=== PATIENT | male | born 1945 | race Caucasian/White ===

== ENCOUNTER 2022-03-15 03:57 | Inpatient (IN) | payer MEDICARE, BC ==
[2022-03-15] VITALS (13 sets, daily range): BP systolic 87–116; BP diastolic 52–65
[~2022-03-15] VITALS: Ht 165.1 cm; Wt 82.5 kg
[2022-03-15] MEDS ORDERED: HEPARIN SODIUM (PORCINE) 5000 UNITS/ML 1ML VIAL IV ONE (04:15)
[2022-03-15] MEDS ORDERED: ATROPINE SULF 1 MG/10ml SYR ONE (04:27)
[2022-03-15] MEDS ORDERED: ANGIOMAX 250 MG VIAL IV ONE (04:27)
[2022-03-15] MEDS ORDERED: fentaNYL CITRATE 100 MCG/2 ML VL ONE (04:28)
[2022-03-15] MEDS ORDERED: MIDAZOLAM HCL 2MG/2ML 2ml VIAL (1mg/ml) ONE (04:28)
[2022-03-15] MEDS ORDERED: EPINEPHrine HCL 1 MG/10 ML SYRG ONE (04:28)
[2022-03-15] MEDS ORDERED: SODIUM CHL 0.9% 50 ML ONE (04:28)
[2022-03-15 04:29] LABS: Basophils # (auto) 0 10 ^3/uL (0-0.2); Basophils % (auto) 0.3 % (0.0-2.0); Eosinophils # (auto) 0.1 10 ^3/uL (0-0.8); Eosinophils % (auto) 0.9 % (0.0-7.0); Hematocrit 41.6 % (41.0-53.0); Hemoglobin 14.3 g/dL (13.5-17.5); Lymphocytes # (auto) 1.8 10 ^3/uL (0.4-5.4); Lymphocytes % (auto) 12.1 % (10.0-50.0); Mean Corpuscular Hemoglobin 30.7 pg (28.0-32.0); Mean Corpuscular Hgb Conc. 34.3 g/dL (32.0-36.0); Mean Corpuscular Volume 89.4 fL (80.0-100.0); Monocytes # (auto) 0.5 10 ^3/uL (0-1.3); Monocytes % (auto) 3.1 % (0.0-12.0); Neutrophils # (auto) 12.8 10 ^3/uL (1.6-8.6); Neutrophils % (auto) 83.6 % (37.0-80.0); Red Blood Cells 4.65 10^6/uL (4.5-5.90); Red Cell Distribution Width 13.2 % (11.8-14.3); White Blood Cell 15.3 10^3/uL (4.4-10.8)
[2022-03-15] MEDS ORDERED: LIDOCAINE 2%HCL (LOCAL ANESTH.) INJ 10ml MDV ONE (04:29)
[2022-03-15] MEDS ORDERED: niCARdipine 25 MG/10 ML VIAL IV ONE (04:34)
[2022-03-15] MEDS ORDERED: IODIXANOL 320MG/ML 100ML BTL IV ONE ×2 (04:35→05:31)
[2022-03-15] MEDS ORDERED: CLOPIDOGREL BISULFATE 75 MG TAB PO ONE (04:45)
[2022-03-15 04:48] LABS: Calcium 9.1 mg/dL (8.5-10.1); Potassium 3.3 mmol/L (3.5-5.1)
[2022-03-15 04:50] LABS: Albumin 3.9 g/dL (3.4-5.0); BUN/Creatinine Ratio 24.1
[2022-03-15 04:53] LABS: Bilirubin, Total 0.5 mg/dL (0.2-1.0); Total Protein 6.9 g/dL (6.4-8.2)
[2022-03-15] MEDS ORDERED: EPTIFIBATIDE INJ (2MG/ML) 10ML VIAL IV ONE (05:06)
[2022-03-15] MEDS ORDERED: DOCUSATE SOD 100 MG CAP PO PRN (05:15)
[2022-03-15] MEDS ORDERED: ACETAMINOPHEN 325 MG TAB PO PRN (05:15)
[2022-03-15] MEDS ORDERED: hydrALAZINE HCL 20 MG/ML VL IV PRN (05:15)
[2022-03-15] MEDS ORDERED: NITROGLYCERIN 0.4 MG SL TAB SL PRN (05:15)
[2022-03-15] MEDS ORDERED: MORPHINE SULFATE INJ 2 MG/ml SYRG IV PRN ×2 (05:15)
[2022-03-15] MEDS ORDERED: ONDANSETRON HCL 4 MG/2 ML VIAL IV PRN (05:15)
[2022-03-15] MEDS ORDERED: DEXTROSE (50%) 50ML SYRG IV PRN (05:15)
[2022-03-15] MEDS ORDERED: HYDROcodone-ACET 5/325MG TAB PO PRN (05:15)
[2022-03-15] MEDS ORDERED: SOD CHL 0.45% 1,000 ML IV SCH (06:00)
[2022-03-15] MEDS ORDERED: cefTRIAXone 1GM/50ML D5W 50 ML IV ONE (06:15)
[2022-03-15] MEDS: ACCU-CHEK COMFORT CURVE STRIP VI SCH ×2 (07:00→11:30)
[2022-03-15] MEDS: POTASSIUM CHL 20MEQ/100ML 100 ML IV SCH ×2 (09:58→14:28)
[2022-03-15] MEDS ORDERED: METOPROLOL TARTRATE 25 MG TAB PO SCH (10:00)
[2022-03-15] MEDS ORDERED: HEPARIN SODIUM (PORCINE) 5000 UNITS/ML 1ML VIAL SC SCH (10:00)
[2022-03-15] MEDS: InsuLIN REG 1unit/0.01ml Soln (100units/ml) SC SCH ×2 (10:00→11:30)
[2022-03-15] MEDS ORDERED: FAMOTIDINE (10MG/ML) 2ML VL IV SCH (10:00)
[2022-03-15] MEDS: SODIUM CHLOR 0.9% PF (SALINE LOCK) 10ML VIAL/SYR IV SCH ×3 (10:00→22:00)
[2022-03-15] MEDS: cefTRIAXone 1GM/50ML D5W 50 ML IV SCH (10:22)
[2022-03-15] MEDS: CLOPIDOGREL BISULFATE 75 MG TAB PO SCH (10:24)
[2022-03-15] MEDS: ASPirin 81 mg TAB PO SCH (10:24)
[2022-03-15] MEDS: NICOTINE 14 MG/24HR TOPICAL PATCH TD SCH (11:31)
[2022-03-15] MEDS ORDERED: POTASSIUM CHL 20MEQ/100ML 100 ML IV ONE (14:26)
[2022-03-15 15:54] LABS: Magnesium 2.2 mg/dL (1.6-2.6)
[2022-03-15] MEDS: METOPROLOL TARTRATE 25 MG TAB PO SCH (22:00)
[2022-03-15] MEDS: ATORVASTATIN 20 MG TAB PO SCH (22:00)
[2022-03-15] MEDS ORDERED: InsuLIN REG 1unit/0.01ml Soln (100units/ml) SC SCH (22:00)
[2022-03-15 23:55] LABS: Urine Bacteria NONE SEEN /hpf (None Seen); Urine Blood 2+ /uL (Negative); Urine Hyaline Cast FEW /lpf (0 - 2); Urine Mucus FEW (None Seen); Urine Specific Gravity 1.043 (1.001-1.035); Urine WBC 4 /hpf (0 - 3)
[2022-03-16] MEDS ORDERED: LORazepam 2MG/ML-1ML VIAL ONE (02:28)
[2022-03-16] MEDS ORDERED: LORazepam 2MG/ML-1ML VIAL IV PRN (02:30)
[2022-03-16] MEDS ORDERED: HALOPERIDOL LACTATE 5 MG/ML INJ VIAL IM ONE (03:30)
[2022-03-16] MEDS: SODIUM CHLOR 0.9% PF (SALINE LOCK) 10ML VIAL/SYR IV SCH ×3 (06:02→22:15)
[2022-03-16 09:00] VITALS: BP 127/93
[2022-03-16] MEDS: NICOTINE 14 MG/24HR TOPICAL PATCH TD SCH (10:00)
[2022-03-16] MEDS: METOPROLOL TARTRATE 25 MG TAB PO SCH ×2 (10:00→22:00)
[2022-03-16] MEDS: ASPirin 81 mg TAB PO SCH (10:00)
[2022-03-16] MEDS: CLOPIDOGREL BISULFATE 75 MG TAB PO SCH (10:00)
[2022-03-16] MEDS: cefTRIAXone 1GM/50ML D5W 50 ML IV SCH (10:14)
[2022-03-16 13:07] LABS: Basophils # (auto) 0 10 ^3/uL (0-0.2); Basophils % (auto) 0.2 % (0.0-2.0); Eosinophils # (auto) 0 10 ^3/uL (0-0.8); Hematocrit 41.1 % (41.0-53.0); Lymphocytes # (auto) 1.2 10 ^3/uL (0.4-5.4); Lymphocytes % (auto) 6.9 % (10.0-50.0); Mean Corpuscular Hemoglobin 30.8 pg (28.0-32.0); Mean Corpuscular Hgb Conc. 34.2 g/dL (32.0-36.0); Mean Corpuscular Volume 90.1 fL (80.0-100.0); Monocytes # (auto) 1.1 10 ^3/uL (0-1.3); Monocytes % (auto) 6.5 % (0.0-12.0); Neutrophils # (auto) 14.3 10 ^3/uL (1.6-8.6); Neutrophils % (auto) 86.4 % (37.0-80.0); Nucleated Red Blood Cells % 0.1 %; Red Blood Cells 4.56 10^6/uL (4.5-5.90); Red Cell Distribution Width 13.3 % (11.8-14.3); White Blood Cell 16.6 10^3/uL (4.4-10.8)
[2022-03-16 13:22] LABS: Albumin 3.3 g/dL (3.4-5.0); BUN/Creatinine Ratio 23.1; Potassium 4.2 mmol/L (3.5-5.1)
[2022-03-16 13:26] LABS: Bilirubin, Total 1.1 mg/dL (0.2-1.0); Total Protein 6.3 g/dL (6.4-8.2)
[2022-03-16 22:00] VITALS: BP 93/43
[2022-03-16] MEDS: ATORVASTATIN 20 MG TAB PO SCH (22:00)
[2022-03-17] VITALS (34 sets, daily range): BP systolic 76–157; BP diastolic 32–73
[2022-03-17] MEDS ORDERED: DOXYCYCLINE 100MG/250ML 250 ML IV SCH (01:45)
[2022-03-17 02:30] LABS: Hemoglobin 15.8 g/dL (13.5-17.5); Nucleated Red Blood Cells % 0.1 %
[2022-03-17 02:45] LABS: Calcium 9.1 mg/dL (8.5-10.1); Potassium 4.8 mmol/L (3.5-5.1)
[2022-03-17 03:07] LABS: Basophils # (auto) 0 10 ^3/uL (0-0.2); Basophils % (auto) 0.1 % (0.0-2.0); Eosinophils # (auto) 0 10 ^3/uL (0-0.8); Hematocrit 46.9 % (41.0-53.0); Lymphocytes # (auto) 1.7 10 ^3/uL (0.4-5.4); Lymphocytes % (auto) 7.5 % (10.0-50.0); Mean Corpuscular Hemoglobin 30.4 pg (28.0-32.0); Mean Corpuscular Hgb Conc. 33.7 g/dL (32.0-36.0); Mean Corpuscular Volume 90.2 fL (80.0-100.0); Monocytes # (auto) 1.4 10 ^3/uL (0-1.3); Monocytes % (auto) 6.2 % (0.0-12.0); Neutrophils # (auto) 19.4 10 ^3/uL (1.6-8.6); Neutrophils % (auto) 86.2 % (37.0-80.0); Red Cell Distribution Width 13.3 % (11.8-14.3); White Blood Cell 22.5 10^3/uL (4.4-10.8)
[2022-03-17 03:30] LABS: Lactic Acid w/Reflex 2.4 mmol/L (0.4-2.0)
[2022-03-17] MEDS ORDERED: ENOXAPARIN SOD 100 MG/1 ML SYRINGE SC ONE (03:45)
[2022-03-17] MEDS ORDERED: PIPERACILLIN-TAZOB 3.375GM 100 ML IV SCH (06:00)
[2022-03-17] MEDS: IPRATROPIUM BROM 0.5 MG/2.5ML INH SOL NEB SCH ×5 (06:15→22:15)
[2022-03-17] MEDS: ALBUTEROL SULF 2.5 MG/0.5ML(0.5%) NEB SOLN NEB SCH ×5 (06:15→22:15)
[2022-03-17] MEDS: SODIUM CHLOR 0.9% PF (SALINE LOCK) 10ML VIAL/SYR IV SCH ×3 (06:39→22:00)
[2022-03-17] MEDS: METOPROLOL TARTRATE 25 MG TAB PO SCH (10:00)
[2022-03-17] MEDS: NICOTINE 14 MG/24HR TOPICAL PATCH TD SCH (10:35)
[2022-03-17] MEDS: ASPirin 81 mg TAB PO SCH (11:52)
[2022-03-17] MEDS: CLOPIDOGREL BISULFATE 75 MG TAB PO SCH (11:52)
[2022-03-17] MEDS: SODIUM CHLORIDE 0.9% 1,000 ML IV SCH (14:36)
[2022-03-17] MEDS ORDERED: LORazepam 0.5 MG TAB PO PRN (15:45)
[2022-03-17] MEDS: PIPERACILLIN-TAZOB 3.375GM 100 ML IV SCH (17:59)
[2022-03-17] MEDS: ATORVASTATIN 20 MG TAB PO SCH (22:06)
[2022-03-18] VITALS (65 sets, daily range): BP systolic 90–165; BP diastolic 13–82
[2022-03-18] MEDS: ALBUTEROL SULF 2.5 MG/0.5ML(0.5%) NEB SOLN NEB SCH ×5 (02:01→18:00)
[2022-03-18] MEDS: IPRATROPIUM BROM 0.5 MG/2.5ML INH SOL NEB SCH ×5 (02:01→18:00)
[2022-03-18] MEDS ORDERED: LORazepam 2MG/ML-1ML VIAL ONE (02:42)
[2022-03-18] MEDS ORDERED: LORazepam 2MG/ML-1ML VIAL IV PRN (02:45)
[2022-03-18] MEDS: PIPERACILLIN-TAZOB 3.375GM 100 ML IV SCH ×2 (03:13→11:41)
[2022-03-18] MEDS: SODIUM CHLORIDE 0.9% 1,000 ML IV SCH (04:25)
[2022-03-18 05:03] LABS: Hematocrit 42.9 % (41.0-53.0); Hemoglobin 14.3 g/dL (13.5-17.5); Mean Corpuscular Hemoglobin 30.9 pg (28.0-32.0); Mean Corpuscular Hgb Conc. 33.4 g/dL (32.0-36.0); Mean Corpuscular Volume 92.8 fL (80.0-100.0); Red Blood Cells 4.62 10^6/uL (4.5-5.90); Red Cell Distribution Width 13.2 % (11.8-14.3); White Blood Cell 28.1 10^3/uL (4.4-10.8)
[2022-03-18 05:09] LABS: Basophils % (manual) 0 (0.0-2.0); Blast Cells 0; Eosinophils % (manual) 0 (0-7); Metamyelocytes % 0; Myelocytes % 0; Promyelocytes % 0; Reactive Lymphocytes 0
[2022-03-18 05:18] LABS: Alanine Aminotransferase 108 U/L (16-61); Albumin 2.7 g/dL (3.4-5.0); Anion Gap 14 (5-15); Aspartate Aminotransferase 156 U/L (15-37); BUN/Creatinine Ratio 35.2; Blood Urea Nitrogen 62 mg/dL (7-18); Calcium 8.6 mg/dL (8.5-10.1); Carbon Dioxide 16 mmol/L (21-32); Chloride 111 mmol/L (98-107); GFR African American 49 mL/min; GFR Non-African American 40 mL/min; Glucose 219 mg/dL (74-106); Sodium 141 mmol/L (136-145)
[2022-03-18 05:21] LABS: Alkaline Phosphatase 87 U/L (45-117); Bilirubin, Total 1.1 mg/dL (0.2-1.0); Total Protein 6.1 g/dL (6.4-8.2)
[2022-03-18] MEDS ORDERED: HALOPERIDOL LACTATE 5 MG/ML INJ VIAL IM ONE (05:30)
[2022-03-18] MEDS: SODIUM CHLOR 0.9% PF (SALINE LOCK) 10ML VIAL/SYR IV SCH ×3 (06:00→23:01)
[2022-03-18] MEDS ORDERED: ETOMIDATE (2MG/ML) 20ML VIAL IV ONE ×2 (06:19→06:45)
[2022-03-18] MEDS ORDERED: SUCCINYLCHOLINE CHLORIDE 20 MG/ML 10ML VIAL IV ONE ×3 (06:19→06:45)
[2022-03-18] MEDS ORDERED: NOREPINEPHRINE 8 MG/250ML KIT 250 ML IV ONE (06:23)
[2022-03-18] MEDS ORDERED: ADENOSINE 6 MG/2 ML INJ IV ONE (06:28)
[2022-03-18] MEDS ORDERED: dilTIAZem 25 MG/5 ML VIAL IV ONE (06:29)
[2022-03-18] MEDS ORDERED: AMIODARONE HCL (50 MG/ ML) 3 ML VIAL IV ONE (06:31)
[2022-03-18] MEDS ORDERED: AMIODARONE 450mg/250ml AE 250 ML IV ONE (06:31)
[2022-03-18] MEDS ORDERED: MIDAZOLAM DRIP 50 mg/50mL 50 ML IV ONE (06:33)
[2022-03-18] MEDS: MIDAZOLAM DRIP 50 mg/50mL 50 ML IV SCH ×5 (06:40→21:03)
[2022-03-18] MEDS ORDERED: AMIODARONE HCL 150 MG in D5W 5% 100 ML IV ONE (06:45)
[2022-03-18] MEDS ORDERED: AMIODARONE 450mg/250ml AE 250 ML IV SCH (07:00)
[2022-03-18] MEDS ORDERED: PROPOFOL 100 ML IV ONE (07:31)
[2022-03-18 08:09] LABS: Band Neutrophils % (manual) 2; Lymphocytes % (manual) 4 (10.0-50.0); Monocytes % (manual) 3 (0-12)
[2022-03-18] MEDS ORDERED: methylPREDNISolone SOD SUCC 40 MG/ML VL IV SCH (10:00)
[2022-03-18] MEDS: NICOTINE 14 MG/24HR TOPICAL PATCH TD SCH (10:00)
[2022-03-18] MEDS ORDERED: SODIUM BICARBONATE 50ML VIAL 100 ML in D5W 5% 1,000 ML IV SCH (10:45)
[2022-03-18] MEDS ORDERED: PANTOPRAZOLE 40 MG/10 ML VIAL INJ IV ONE (10:45)
[2022-03-18] MEDS: CLOPIDOGREL BISULFATE 75 MG TAB PO SCH (11:30)
[2022-03-18] MEDS: ASPirin 81 mg TAB PO SCH (11:31)
[2022-03-18] MEDS: PROPOFOL 100 ML IV SCH ×3 (11:34→21:08)
[2022-03-18] MEDS: fentaNYL Drip 2500mCg/250mlNS 250 ML IV SCH (11:35)
[2022-03-18] MEDS ORDERED: ENOXAPARIN SOD 30 MG/0.3 ML SYRINGE SC ONE (11:45)
[2022-03-18] MEDS ORDERED: MEROPENEM 1GM IVPB 100 ML IV ONE (11:45)
[2022-03-18] MEDS ORDERED: FUROSEMIDE 40 MG/4 ML VIAL IV ONE ×2 (11:45→12:00)
[2022-03-18] MEDS: SODIUM BICARBONATE 50ML VIAL 100 ML in D5W 5% 1,000 ML IV SCH (12:00)
[2022-03-18] MEDS: AMIODARONE 450mg/250ml AE 250 ML IV SCH (13:15)
[2022-03-18 18:51] LABS: BUN/Creatinine Ratio 39.6; Calcium 8.3 mg/dL (8.5-10.1); Magnesium 2.6 mg/dL (1.6-2.6); Phosphorus 5.9 mg/dL (2.5-4.90); Potassium 4.7 mmol/L (3.5-5.1)
[2022-03-18 20:04] LABS: INR 1.1 (0.9-1.15); Partial Thromboplastin Time 31.6 sec (23.6-33.0)
[2022-03-18] MEDS: NOREPINEPHRINE 8 MG/250ML KIT 250 ML IV SCH (21:04)
[2022-03-18] MEDS: MEROPENEM 1GM IVPB 100 ML IV SCH (21:07)
[2022-03-18] MEDS: ATORVASTATIN 20 MG TAB PO SCH (23:01)
[2022-03-19] VITALS (101 sets, daily range): BP systolic 89–150; BP diastolic 20–62
[2022-03-19] MEDS: ALBUTEROL SULF 2.5 MG/0.5ML(0.5%) NEB SOLN NEB SCH ×6 (00:12→23:00)
[2022-03-19] MEDS: IPRATROPIUM BROM 0.5 MG/2.5ML INH SOL NEB SCH ×6 (00:12→23:01)
[2022-03-19 01:44] LABS: BUN/Creatinine Ratio 36.8; Calcium 8.2 mg/dL (8.5-10.1); Magnesium 2.5 mg/dL (1.6-2.6); Phosphorus 6.6 mg/dL (2.5-4.90); Potassium 4.8 mmol/L (3.5-5.1)
[2022-03-19] MEDS: SODIUM BICARBONATE 50ML VIAL 100 ML in D5W 5% 1,000 ML IV SCH (02:33)
[2022-03-19] MEDS: AMIODARONE 450mg/250ml AE 250 ML IV SCH ×2 (02:34→19:26)
[2022-03-19] MEDS: MIDAZOLAM DRIP 50 mg/50mL 50 ML IV SCH (02:34)
[2022-03-19 04:03] LABS: Hematocrit 37.3 % (41.0-53.0); Hemoglobin 12.3 g/dL (13.5-17.5); Mean Corpuscular Hemoglobin 30.2 pg (28.0-32.0); Mean Corpuscular Volume 91.5 fL (80.0-100.0); Red Blood Cells 4.08 10^6/uL (4.5-5.90); Red Cell Distribution Width 13.5 % (11.8-14.3); White Blood Cell 26.9 10^3/uL (4.4-10.8)
[2022-03-19 04:10] LABS: Basophils % (manual) 0 (0.0-2.0); Blast Cells 0; Eosinophils % (manual) 0 (0-7); Metamyelocytes % 0; Myelocytes % 0; Promyelocytes % 0; Reactive Lymphocytes 0
[2022-03-19 04:18] LABS: Potassium 4.6 mmol/L (3.5-5.1)
[2022-03-19 04:22] LABS: Albumin 2.3 g/dL (3.4-5.0); BUN/Creatinine Ratio 37.4
[2022-03-19 04:33] LABS: Bilirubin, Total 0.4 mg/dL (0.2-1.0); Total Protein 5.5 g/dL (6.4-8.2)
[2022-03-19] MEDS: PROPOFOL 100 ML IV SCH (05:00)
[2022-03-19 06:48] LABS: Band Neutrophils % (manual) 3; Lymphocytes % (manual) 3 (10.0-50.0); Monocytes % (manual) 5 (0-12)
[2022-03-19] MEDS: SODIUM CHLOR 0.9% PF (SALINE LOCK) 10ML VIAL/SYR IV SCH ×4 (07:15→22:11)
[2022-03-19] MEDS ORDERED: FUROSEMIDE 40 MG/4 ML VIAL IV ONE (09:00)
[2022-03-19] MEDS: NICOTINE 14 MG/24HR TOPICAL PATCH TD SCH (09:27)
[2022-03-19] MEDS: MEROPENEM 1GM IVPB 100 ML IV SCH ×2 (09:47→22:10)
[2022-03-19] MEDS: ASPirin 81 mg TAB PO SCH (09:48)
[2022-03-19] MEDS: PANTOPRAZOLE 40 MG/10 ML VIAL INJ IV SCH (09:48)
[2022-03-19] MEDS: CLOPIDOGREL BISULFATE 75 MG TAB PO SCH (09:48)
[2022-03-19 10:34] LABS: BUN/Creatinine Ratio 38.3; Calcium 8.1 mg/dL (8.5-10.1); Potassium 5.2 mmol/L (3.5-5.1)
[2022-03-19] MEDS ORDERED: LIDOCAINE 1% (LOCAL ANESTH.) PF 5ml SDV ID ONE (12:00)
[2022-03-19] MEDS: FUROSEMIDE INJECTION 100 MG in D5W 5% 100 ML IV SCH (12:08)
[2022-03-19] MEDS ORDERED: Nepro With Carb Steady 1 Liter Bottle GT SCH (14:30)
[2022-03-19 15:58] LABS: Calcium 8.1 mg/dL (8.5-10.1); Potassium 4.9 mmol/L (3.5-5.1)
[2022-03-19 16:00] LABS: BUN/Creatinine Ratio 35.5
[2022-03-19] MEDS: NOREPINEPHRINE 8 MG/250ML KIT 250 ML IV SCH (16:41)
[2022-03-19] MEDS: fentaNYL Drip 2500mCg/250mlNS 250 ML IV SCH (16:42)
[2022-03-19] MEDS: ATORVASTATIN 20 MG TAB PO SCH (22:11)
[2022-03-20] VITALS (104 sets, daily range): BP systolic 87–125; BP diastolic 45–69
[2022-03-20] MEDS: FUROSEMIDE INJECTION 100 MG in D5W 5% 100 ML IV SCH ×2
[2022-03-20] MEDS: NOREPINEPHRINE 8 MG/250ML KIT 250 ML IV SCH ×2 (00:01→08:25)
[2022-03-20] MEDS: IPRATROPIUM BROM 0.5 MG/2.5ML INH SOL NEB SCH ×6 (02:43→22:21)
[2022-03-20] MEDS: ALBUTEROL SULF 2.5 MG/0.5ML(0.5%) NEB SOLN NEB SCH ×6 (02:43→22:21)
[2022-03-20] MEDS: SODIUM CHLOR 0.9% PF (SALINE LOCK) 10ML VIAL/SYR IV SCH ×5 (03:03→22:00)
[2022-03-20] MEDS: MIDAZOLAM DRIP 50 mg/50mL 50 ML IV SCH (03:04)
[2022-03-20 03:54] LABS: Basophils # (auto) 0.1 10 ^3/uL (0-0.2); Basophils % (auto) 0.4 % (0.0-2.0); Eosinophils # (auto) 0 10 ^3/uL (0-0.8); Eosinophils % (auto) 0.1 % (0.0-7.0); Hematocrit 36.1 % (41.0-53.0); Hemoglobin 12.2 g/dL (13.5-17.5); Lymphocytes # (auto) 1.4 10 ^3/uL (0.4-5.4); Lymphocytes % (auto) 6.1 % (10.0-50.0); Mean Corpuscular Hemoglobin 30.6 pg (28.0-32.0); Mean Corpuscular Hgb Conc. 33.9 g/dL (32.0-36.0); Mean Corpuscular Volume 90.3 fL (80.0-100.0); Neutrophils # (auto) 19.2 10 ^3/uL (1.6-8.6); Neutrophils % (auto) 84.4 % (37.0-80.0); Nucleated Red Blood Cells % 0.1 %; Red Cell Distribution Width 13.5 % (11.8-14.3); White Blood Cell 22.7 10^3/uL (4.4-10.8)
[2022-03-20 04:10] LABS: Albumin 2.3 g/dL (3.4-5.0); Calcium 8.2 mg/dL (8.5-10.1)
[2022-03-20 04:13] LABS: Bilirubin, Total 0.4 mg/dL (0.2-1.0); Total Protein 5.8 g/dL (6.4-8.2)
[2022-03-20 04:15] LABS: BUN/Creatinine Ratio 42.3
[2022-03-20] MEDS: AMIODARONE 450mg/250ml AE 250 ML IV SCH (08:24)
[2022-03-20] MEDS: PROPOFOL 100 ML IV SCH (08:24)
[2022-03-20] MEDS: ASPirin 81 mg TAB PO SCH (09:54)
[2022-03-20] MEDS: MEROPENEM 1GM IVPB 100 ML IV SCH ×2 (09:54→22:00)
[2022-03-20] MEDS: PANTOPRAZOLE 40 MG/10 ML VIAL INJ IV SCH (09:55)
[2022-03-20] MEDS: CLOPIDOGREL BISULFATE 75 MG TAB PO SCH (09:55)
[2022-03-20] MEDS: fentaNYL Drip 2500mCg/250mlNS 250 ML IV SCH (13:00)
[2022-03-20] MEDS: FREE WATER GT SCH (17:32)
[2022-03-20] MEDS: LINEZOLID 600MG/300ML 300 ML IV SCH (20:38)
[2022-03-20] MEDS: ATORVASTATIN 20 MG TAB PO SCH (22:00)
[2022-03-21] VITALS (107 sets, daily range): BP systolic 85–116; BP diastolic 44–66
[2022-03-21] MEDS: AMIODARONE 450mg/250ml AE 250 ML IV SCH ×3 (01:00→17:36)
[2022-03-21] MEDS: FUROSEMIDE INJECTION 100 MG in D5W 5% 100 ML IV SCH ×2 (01:30→21:30)
[2022-03-21] MEDS: ALBUTEROL SULF 2.5 MG/0.5ML(0.5%) NEB SOLN NEB SCH ×6 (02:12→22:13)
[2022-03-21] MEDS: IPRATROPIUM BROM 0.5 MG/2.5ML INH SOL NEB SCH ×6 (02:12→22:13)
[2022-03-21] MEDS: PROPOFOL 100 ML IV SCH ×3 (02:16→17:36)
[2022-03-21] MEDS: NOREPINEPHRINE 8 MG/250ML KIT 250 ML IV SCH ×3 (02:17→19:06)
[2022-03-21 04:22] LABS: Basophils # (auto) 0 10 ^3/uL (0-0.2); Basophils % (auto) 0.1 % (0.0-2.0); Eosinophils # (auto) 0.1 10 ^3/uL (0-0.8); Hematocrit 34.8 % (41.0-53.0); Hemoglobin 11.6 g/dL (13.5-17.5); Lymphocytes # (auto) 1.1 10 ^3/uL (0.4-5.4); Mean Corpuscular Hemoglobin 30.7 pg (28.0-32.0); Mean Corpuscular Hgb Conc. 33.3 g/dL (32.0-36.0); Mean Corpuscular Volume 92.1 fL (80.0-100.0); Monocytes # (auto) 1.5 10 ^3/uL (0-1.3); Monocytes % (auto) 11.5 % (0.0-12.0); Neutrophils # (auto) 9.9 10 ^3/uL (1.6-8.6); Neutrophils % (auto) 78.4 % (37.0-80.0); Nucleated Red Blood Cells % 0.4 %; Red Blood Cells 3.78 10^6/uL (4.5-5.90); Red Cell Distribution Width 13.1 % (11.8-14.3); White Blood Cell 12.7 10^3/uL (4.4-10.8)
[2022-03-21 04:40] LABS: BUN/Creatinine Ratio 67.5; Calcium 8.1 mg/dL (8.5-10.1); Potassium 4.1 mmol/L (3.5-5.1)
[2022-03-21] MEDS: FREE WATER GT SCH ×4 (06:00→18:16)
[2022-03-21] MEDS: SODIUM CHLOR 0.9% PF (SALINE LOCK) 10ML VIAL/SYR IV SCH ×5 (06:00→21:52)
[2022-03-21] MEDS: MIDAZOLAM DRIP 50 mg/50mL 50 ML IV SCH (06:45)
[2022-03-21] MEDS: ASPirin 81 mg TAB PO SCH (09:12)
[2022-03-21] MEDS: PANTOPRAZOLE 40 MG/10 ML VIAL INJ IV SCH (09:12)
[2022-03-21] MEDS: CLOPIDOGREL BISULFATE 75 MG TAB PO SCH (09:12)
[2022-03-21] MEDS: LINEZOLID 600MG/300ML 300 ML IV SCH ×2 (09:13→20:33)
[2022-03-21] MEDS ORDERED: DEXTROSE (50%) 50ML SYRG IV PRN (11:15)
[2022-03-21] MEDS: fentaNYL Drip 2500mCg/250mlNS 250 ML IV SCH (11:18)
[2022-03-21] MEDS: MEROPENEM 1GM IVPB 100 ML IV SCH ×2 (11:18→21:52)
[2022-03-21] MEDS: ACCU-CHEK COMFORT CURVE STRIP VI SCH ×2 (11:39→18:16)
[2022-03-21] MEDS: InsuLIN REG 1unit/0.01ml Soln (100units/ml) SC SCH ×2 (11:45→18:00)
[2022-03-21 14:58] LABS: Basophils # (auto) 0.1 10 ^3/uL (0-0.2); Basophils % (auto) 0.8 % (0.0-2.0); Eosinophils # (auto) 0.2 10 ^3/uL (0-0.8); Eosinophils % (auto) 1.3 % (0.0-7.0); Hematocrit 33.7 % (41.0-53.0); Hemoglobin 11.5 g/dL (13.5-17.5); Lymphocytes # (auto) 0.9 10 ^3/uL (0.4-5.4); Lymphocytes % (auto) 7.9 % (10.0-50.0); Mean Corpuscular Hemoglobin 30.9 pg (28.0-32.0); Mean Corpuscular Volume 90.9 fL (80.0-100.0); Monocytes # (auto) 1.5 10 ^3/uL (0-1.3); Monocytes % (auto) 12.4 % (0.0-12.0); Neutrophils # (auto) 9.4 10 ^3/uL (1.6-8.6); Neutrophils % (auto) 77.6 % (37.0-80.0); Nucleated Red Blood Cells % 0.1 %; Red Blood Cells 3.71 10^6/uL (4.5-5.90); Red Cell Distribution Width 13.2 % (11.8-14.3); White Blood Cell 12.1 10^3/uL (4.4-10.8)
[2022-03-21 15:02] LABS: Albumin 1.8 g/dL (3.4-5.0); BUN/Creatinine Ratio 65.6; Calcium 7.3 mg/dL (8.5-10.1); Potassium 3.8 mmol/L (3.5-5.1)
[2022-03-21 15:04] LABS: Bilirubin, Total 0.6 mg/dL (0.2-1.0); Total Protein 4.9 g/dL (6.4-8.2)
[2022-03-21] MEDS: ATORVASTATIN 20 MG TAB PO SCH (21:52)
[2022-03-22] VITALS (101 sets, daily range): BP systolic 83–121; BP diastolic 42–68
[2022-03-22] MEDS: IPRATROPIUM BROM 0.5 MG/2.5ML INH SOL NEB SCH ×6 (02:12→22:13)
[2022-03-22] MEDS: ALBUTEROL SULF 2.5 MG/0.5ML(0.5%) NEB SOLN NEB SCH ×6 (02:12→22:13)
[2022-03-22 04:33] LABS: Albumin 2.2 g/dL (3.4-5.0); BUN/Creatinine Ratio 62.6; Calcium 8.7 mg/dL (8.5-10.1); Magnesium 2.2 mg/dL (1.6-2.6); Potassium 3.4 mmol/L (3.5-5.1)
[2022-03-22 04:35] LABS: Basophils # (auto) 0 10 ^3/uL (0-0.2); Basophils % (auto) 0.1 % (0.0-2.0); Eosinophils # (auto) 0.2 10 ^3/uL (0-0.8); Eosinophils % (auto) 1.8 % (0.0-7.0); Hematocrit 36.6 % (41.0-53.0); Hemoglobin 12.5 g/dL (13.5-17.5); Lymphocytes # (auto) 1.2 10 ^3/uL (0.4-5.4); Lymphocytes % (auto) 8.9 % (10.0-50.0); Mean Corpuscular Hemoglobin 30.9 pg (28.0-32.0); Mean Corpuscular Hgb Conc. 34.2 g/dL (32.0-36.0); Mean Corpuscular Volume 90.5 fL (80.0-100.0); Monocytes # (auto) 1.8 10 ^3/uL (0-1.3); Monocytes % (auto) 13.1 % (0.0-12.0); Neutrophils # (auto) 10.2 10 ^3/uL (1.6-8.6); Neutrophils % (auto) 76.1 % (37.0-80.0); Nucleated Red Blood Cells % 0.1 %; Red Blood Cells 4.04 10^6/uL (4.5-5.90); Red Cell Distribution Width 13.4 % (11.8-14.3); White Blood Cell 13.4 10^3/uL (4.4-10.8)
[2022-03-22 04:36] LABS: Bilirubin, Total 0.6 mg/dL (0.2-1.0); Total Protein 5.7 g/dL (6.4-8.2)
[2022-03-22] MEDS: MEROPENEM 1GM IVPB 100 ML IV SCH ×3 (05:37→22:00)
[2022-03-22] MEDS: SODIUM CHLOR 0.9% PF (SALINE LOCK) 10ML VIAL/SYR IV SCH ×5 (05:37→22:00)
[2022-03-22] MEDS: ACCU-CHEK COMFORT CURVE STRIP VI SCH ×4 (05:37→18:54)
[2022-03-22] MEDS: FREE WATER GT SCH ×4 (05:37→18:54)
[2022-03-22] MEDS: InsuLIN REG 1unit/0.01ml Soln (100units/ml) SC SCH ×4 (05:37→18:00)
[2022-03-22] MEDS: MIDAZOLAM DRIP 50 mg/50mL 50 ML IV SCH (06:42)
[2022-03-22] MEDS: NOREPINEPHRINE 8 MG/250ML KIT 250 ML IV SCH ×2 (06:52→19:03)
[2022-03-22] MEDS: AMIODARONE 450mg/250ml AE 250 ML IV SCH (09:00)
[2022-03-22] MEDS ORDERED: POTASSIUM EFFERVESENT TAB 25 MEQ PO ONE (09:15)
[2022-03-22] MEDS: PANTOPRAZOLE 40 MG/10 ML VIAL INJ IV SCH (09:19)
[2022-03-22] MEDS: ENOXAPARIN SOD 40 MG/0.4 ML SYRINGE SC SCH (09:19)
[2022-03-22] MEDS: LINEZOLID 600MG/300ML 300 ML IV SCH ×2 (09:20→20:42)
[2022-03-22] MEDS: CLOPIDOGREL BISULFATE 75 MG TAB PO SCH (09:20)
[2022-03-22] MEDS: ASPirin 81 mg TAB PO SCH (09:23)
[2022-03-22] MEDS: PROPOFOL 100 ML IV SCH ×2 (10:57→18:55)
[2022-03-22] MEDS: fentaNYL Drip 2500mCg/250mlNS 250 ML IV SCH (11:41)
[2022-03-22] MEDS: ATORVASTATIN 20 MG TAB PO SCH (22:02)
[2022-03-23] VITALS (102 sets, daily range): BP systolic 84–134; BP diastolic 50–73
[2022-03-23] MEDS: AMIODARONE 450mg/250ml AE 250 ML IV SCH ×2 (04:00→17:36)
[2022-03-23] MEDS: MEROPENEM 1GM IVPB 100 ML IV SCH ×3 (06:00→21:15)
[2022-03-23] MEDS: ACCU-CHEK COMFORT CURVE STRIP VI SCH ×5 (06:00→21:13)
[2022-03-23] MEDS: FREE WATER GT SCH ×5 (06:00→21:13)
[2022-03-23] MEDS: InsuLIN REG 1unit/0.01ml Soln (100units/ml) SC SCH ×5 (06:00→21:14)
[2022-03-23] MEDS: SODIUM CHLOR 0.9% PF (SALINE LOCK) 10ML VIAL/SYR IV SCH ×5 (06:00→20:39)
[2022-03-23] MEDS: IPRATROPIUM BROM 0.5 MG/2.5ML INH SOL NEB SCH ×5 (06:25→22:04)
[2022-03-23] MEDS: ALBUTEROL SULF 2.5 MG/0.5ML(0.5%) NEB SOLN NEB SCH ×5 (06:25→22:04)
[2022-03-23] MEDS: MIDAZOLAM DRIP 50 mg/50mL 50 ML IV SCH (06:45)
[2022-03-23] MEDS: LINEZOLID 600MG/300ML 300 ML IV SCH ×2 (08:33→20:38)
[2022-03-23] MEDS: ENOXAPARIN SOD 40 MG/0.4 ML SYRINGE SC SCH (09:42)
[2022-03-23] MEDS: PANTOPRAZOLE 40 MG/10 ML VIAL INJ IV SCH (09:42)
[2022-03-23] MEDS: ASPirin 81 mg TAB PO SCH (09:42)
[2022-03-23] MEDS: CLOPIDOGREL BISULFATE 75 MG TAB PO SCH (09:43)
[2022-03-23 10:30] LABS: Basophils # (auto) 0 10 ^3/uL (0-0.2); Basophils % (auto) 0.3 % (0.0-2.0); Eosinophils # (auto) 0.3 10 ^3/uL (0-0.8); Lymphocytes # (auto) 1.2 10 ^3/uL (0.4-5.4); Monocytes # (auto) 1.1 10 ^3/uL (0-1.3)
[2022-03-23 10:33] LABS: Eosinophils % (auto) 2.7 % (0.0-7.0); Hematocrit 27.1 % (41.0-53.0); Lymphocytes % (auto) 10.1 % (10.0-50.0); Mean Corpuscular Hemoglobin 30.4 pg (28.0-32.0); Mean Corpuscular Hgb Conc. 29.4 g/dL (32.0-36.0); Mean Corpuscular Volume 103.6 fL (80.0-100.0); Neutrophils # (auto) 9.5 10 ^3/uL (1.6-8.6); Neutrophils % (auto) 77.9 % (37.0-80.0); Red Blood Cells 2.62 10^6/uL (4.5-5.90); Red Cell Distribution Width 14.6 % (11.8-14.3); White Blood Cell 12.2 10^3/uL (4.4-10.8)
[2022-03-23] MEDS: PROPOFOL 100 ML IV SCH ×2 (10:33→17:36)
[2022-03-23] MEDS: fentaNYL Drip 2500mCg/250mlNS 250 ML IV SCH ×2 (10:45→17:37)
[2022-03-23] MEDS ORDERED: ALBUMIN 25% 100 ML IV ONE (11:00)
[2022-03-23 13:11] LABS: Chloride 103 mmol/L (98-107); Potassium 3.6 mmol/L (3.5-5.1); Sodium 144 mmol/L (136-145)
[2022-03-23 13:12] LABS: Alanine Aminotransferase 70 U/L (16-61); Albumin 1.9 g/dL (3.4-5.0); Alkaline Phosphatase 113 U/L (45-117); Anion Gap 5 (5-15); Aspartate Aminotransferase 72 U/L (15-37); BUN/Creatinine Ratio 57.5; Bilirubin, Total 0.5 mg/dL (0.2-1.0); Blood Urea Nitrogen 42 mg/dL (7-18); Calcium 8.4 mg/dL (8.5-10.1); Carbon Dioxide 36 mmol/L (21-32); GFR African American 134 mL/min; GFR Non-African American 111 mL/min; Glucose 148 mg/dL (74-106); Total Protein 5.5 g/dL (6.4-8.2)
[2022-03-23] MEDS: METOCLOPRAMIDE HCL 5MG/ml INJ 2ml VIAL IV SCH ×2 (14:26→20:38)
[2022-03-23] MEDS: NOREPINEPHRINE 8 MG/250ML KIT 250 ML IV SCH (17:36)
[2022-03-23] MEDS: SENNA 8.6 MG TAB PO SCH (20:38)
[2022-03-23] MEDS: ATORVASTATIN 20 MG TAB PO SCH (20:38)
[2022-03-23] MEDS: FUROSEMIDE 40 MG/4 ML VIAL IV SCH (20:38)
[2022-03-24] VITALS (106 sets, daily range): BP systolic 87–132; BP diastolic 35–68
[2022-03-24] MEDS: IPRATROPIUM BROM 0.5 MG/2.5ML INH SOL NEB SCH ×6 (02:00→22:00)
[2022-03-24] MEDS: ALBUTEROL SULF 2.5 MG/0.5ML(0.5%) NEB SOLN NEB SCH ×6 (02:00→22:00)
[2022-03-24 04:34] LABS: Basophils # (auto) 0 10 ^3/uL (0-0.2); Basophils % (auto) 0.2 % (0.0-2.0); Eosinophils # (auto) 0.5 10 ^3/uL (0-0.8); Eosinophils % (auto) 3.3 % (0.0-7.0); Hematocrit 33.7 % (41.0-53.0); Hemoglobin 11.6 g/dL (13.5-17.5); Lymphocytes # (auto) 1.3 10 ^3/uL (0.4-5.4); Lymphocytes % (auto) 9.7 % (10.0-50.0); Mean Corpuscular Hemoglobin 31.1 pg (28.0-32.0); Mean Corpuscular Hgb Conc. 34.3 g/dL (32.0-36.0); Mean Corpuscular Volume 90.5 fL (80.0-100.0); Monocytes # (auto) 1.4 10 ^3/uL (0-1.3); Monocytes % (auto) 9.8 % (0.0-12.0); Neutrophils # (auto) 10.8 10 ^3/uL (1.6-8.6); Red Blood Cells 3.73 10^6/uL (4.5-5.90); Red Cell Distribution Width 13.3 % (11.8-14.3)
[2022-03-24 04:53] LABS: Calcium 8.4 mg/dL (8.5-10.1)
[2022-03-24 04:56] LABS: BUN/Creatinine Ratio 62.7
[2022-03-24] MEDS: FREE WATER GT SCH ×4 (05:03→22:50)
[2022-03-24] MEDS: METOCLOPRAMIDE HCL 5MG/ml INJ 2ml VIAL IV SCH ×3 (05:04→22:49)
[2022-03-24] MEDS: MIDAZOLAM DRIP 50 mg/50mL 50 ML IV SCH ×3 (05:04→22:50)
[2022-03-24] MEDS: SODIUM CHLOR 0.9% PF (SALINE LOCK) 10ML VIAL/SYR IV SCH ×4 (05:04→20:19)
[2022-03-24] MEDS: ACCU-CHEK COMFORT CURVE STRIP VI SCH ×3 (05:04→18:17)
[2022-03-24] MEDS: MEROPENEM 1GM IVPB 100 ML IV SCH ×3 (05:06→22:49)
[2022-03-24] MEDS: fentaNYL Drip 2500mCg/250mlNS 250 ML IV SCH (05:07)
[2022-03-24] MEDS: AMIODARONE 450mg/250ml AE 250 ML IV SCH ×2 (05:08→18:26)
[2022-03-24] MEDS: InsuLIN REG 1unit/0.01ml Soln (100units/ml) SC SCH ×3 (06:00→18:00)
[2022-03-24] MEDS: LINEZOLID 600MG/300ML 300 ML IV SCH (08:11)
[2022-03-24] MEDS: PROPOFOL 100 ML IV SCH ×2 (09:23→22:49)
[2022-03-24] MEDS: PANTOPRAZOLE 40 MG/10 ML VIAL INJ IV SCH (09:24)
[2022-03-24] MEDS: ASPirin 81 mg TAB PO SCH (09:24)
[2022-03-24] MEDS: FUROSEMIDE 40 MG/4 ML VIAL IV SCH ×2 (09:24→22:49)
[2022-03-24] MEDS: ENOXAPARIN SOD 40 MG/0.4 ML SYRINGE SC SCH (09:25)
[2022-03-24] MEDS: CLOPIDOGREL BISULFATE 75 MG TAB PO SCH (09:25)
[2022-03-24] MEDS: NOREPINEPHRINE 8 MG/250ML KIT 250 ML IV SCH (12:35)
[2022-03-24] MEDS: SENNA 8.6 MG TAB PO SCH (20:19)
[2022-03-24] MEDS: ATORVASTATIN 20 MG TAB PO SCH (20:19)
[2022-03-25] VITALS (107 sets, daily range): BP systolic 92–128; BP diastolic 34–72
[2022-03-25] MEDS: ACCU-CHEK COMFORT CURVE STRIP VI SCH ×4 (01:10→18:11)
[2022-03-25] MEDS: Nepro With Carb Steady 1 Liter Bottle GT SCH (01:32)
[2022-03-25] MEDS: NOREPINEPHRINE 8 MG/250ML KIT 250 ML IV SCH ×2 (01:33→12:57)
[2022-03-25] MEDS: ALBUTEROL SULF 2.5 MG/0.5ML(0.5%) NEB SOLN NEB SCH ×6 (02:00→21:52)
[2022-03-25] MEDS: IPRATROPIUM BROM 0.5 MG/2.5ML INH SOL NEB SCH ×6 (02:00→21:52)
[2022-03-25 04:09] LABS: Basophils # (auto) 0.1 10 ^3/uL (0-0.2); Basophils % (auto) 0.5 % (0.0-2.0); Eosinophils # (auto) 0.4 10 ^3/uL (0-0.8); Eosinophils % (auto) 2.8 % (0.0-7.0); Hematocrit 38.2 % (41.0-53.0); Hemoglobin 12.6 g/dL (13.5-17.5); Lymphocytes # (auto) 1.4 10 ^3/uL (0.4-5.4); Lymphocytes % (auto) 9.1 % (10.0-50.0); Mean Corpuscular Hemoglobin 29.8 pg (28.0-32.0); Mean Corpuscular Volume 90.4 fL (80.0-100.0); Monocytes # (auto) 1.2 10 ^3/uL (0-1.3); Monocytes % (auto) 8.3 % (0.0-12.0); Neutrophils # (auto) 11.8 10 ^3/uL (1.6-8.6); Neutrophils % (auto) 79.3 % (37.0-80.0); Nucleated Red Blood Cells % 0.1 %; Red Blood Cells 4.23 10^6/uL (4.5-5.90); Red Cell Distribution Width 12.9 % (11.8-14.3); White Blood Cell 14.9 10^3/uL (4.4-10.8)
[2022-03-25 04:21] LABS: BUN/Creatinine Ratio 50.6; Potassium 3.7 mmol/L (3.5-5.1)
[2022-03-25] MEDS: MEROPENEM 1GM IVPB 100 ML IV SCH ×3 (05:19→21:57)
[2022-03-25] MEDS: FREE WATER GT SCH ×3 (05:19→18:00)
[2022-03-25] MEDS: METOCLOPRAMIDE HCL 5MG/ml INJ 2ml VIAL IV SCH ×3 (05:19→21:57)
[2022-03-25] MEDS: InsuLIN REG 1unit/0.01ml Soln (100units/ml) SC SCH ×4 (05:59→18:10)
[2022-03-25] MEDS: MIDAZOLAM DRIP 50 mg/50mL 50 ML IV SCH ×2 (06:32→21:10)
[2022-03-25] MEDS: PROPOFOL 100 ML IV SCH ×2 (06:32→16:11)
[2022-03-25] MEDS: AMIODARONE 450mg/250ml AE 250 ML IV SCH (09:35)
[2022-03-25] MEDS: fentaNYL Drip 2500mCg/250mlNS 250 ML IV SCH (09:38)
[2022-03-25] MEDS: PANTOPRAZOLE 40 MG/10 ML VIAL INJ IV SCH (09:39)
[2022-03-25] MEDS: FUROSEMIDE 40 MG/4 ML VIAL IV SCH ×2 (09:40→21:57)
[2022-03-25] MEDS: ENOXAPARIN SOD 40 MG/0.4 ML SYRINGE SC SCH (10:12)
[2022-03-25] MEDS: CLOPIDOGREL BISULFATE 75 MG TAB PO SCH (10:12)
[2022-03-25] MEDS: ASPirin 81 mg TAB PO SCH (10:12)
[2022-03-25] MEDS: SODIUM CHLOR 0.9% PF (SALINE LOCK) 10ML VIAL/SYR IV SCH ×2 (10:13→21:58)
[2022-03-25] MEDS: SENNA 8.6 MG TAB PO SCH (21:57)
[2022-03-25] MEDS: ATORVASTATIN 20 MG TAB PO SCH (21:58)
[2022-03-26] VITALS (105 sets, daily range): BP systolic 89–123; BP diastolic 38–65
[2022-03-26] MEDS: ACCU-CHEK COMFORT CURVE STRIP VI SCH ×4 (00:06→17:47)
[2022-03-26] MEDS: AMIODARONE 450mg/250ml AE 250 ML IV SCH (02:15)
[2022-03-26] MEDS: PROPOFOL 100 ML IV SCH (02:16)
[2022-03-26] MEDS: fentaNYL Drip 2500mCg/250mlNS 250 ML IV SCH ×2 (02:17→21:18)
[2022-03-26] MEDS: IPRATROPIUM BROM 0.5 MG/2.5ML INH SOL NEB SCH ×6 (02:23→22:00)
[2022-03-26] MEDS: ALBUTEROL SULF 2.5 MG/0.5ML(0.5%) NEB SOLN NEB SCH ×6 (02:23→22:00)
[2022-03-26 04:17] LABS: Basophils # (auto) 0 10 ^3/uL (0-0.2); Eosinophils # (auto) 0.6 10 ^3/uL (0-0.8); Hematocrit 34.2 % (41.0-53.0); Hemoglobin 11.4 g/dL (13.5-17.5); Mean Corpuscular Hgb Conc. 33.2 g/dL (32.0-36.0); Mean Corpuscular Volume 90.2 fL (80.0-100.0); Monocytes # (auto) 0.8 10 ^3/uL (0-1.3); Monocytes % (auto) 6.4 % (0.0-12.0); Neutrophils # (auto) 9.9 10 ^3/uL (1.6-8.6); Neutrophils % (auto) 80.6 % (37.0-80.0); Red Blood Cells 3.78 10^6/uL (4.5-5.90); Red Cell Distribution Width 13.3 % (11.8-14.3); White Blood Cell 12.3 10^3/uL (4.4-10.8)
[2022-03-26 04:34] LABS: BUN/Creatinine Ratio 51.7; Calcium 8.3 mg/dL (8.5-10.1)
[2022-03-26] MEDS: MIDAZOLAM DRIP 50 mg/50mL 50 ML IV SCH ×3 (04:45→21:18)
[2022-03-26] MEDS: InsuLIN REG 1unit/0.01ml Soln (100units/ml) SC SCH ×4 (06:00→17:46)
[2022-03-26] MEDS: MEROPENEM 1GM IVPB 100 ML IV SCH ×3 (06:00→22:42)
[2022-03-26] MEDS: METOCLOPRAMIDE HCL 5MG/ml INJ 2ml VIAL IV SCH ×3 (06:00→22:43)
[2022-03-26] MEDS: FREE WATER GT SCH ×4 (06:00→17:47)
[2022-03-26] MEDS ORDERED: POTASSIUM CHL 20MEQ/100ML 100 ML IV ONE (07:00)
[2022-03-26] MEDS: NOREPINEPHRINE 8 MG/250ML KIT 250 ML IV SCH (07:53)
[2022-03-26] MEDS: PANTOPRAZOLE 40 MG/10 ML VIAL INJ IV SCH ×2 (10:18→22:42)
[2022-03-26] MEDS: SODIUM CHLOR 0.9% PF (SALINE LOCK) 10ML VIAL/SYR IV SCH ×2 (10:20→22:00)
[2022-03-26] MEDS: FUROSEMIDE 40 MG/4 ML VIAL IV SCH ×2 (10:20→22:43)
[2022-03-26] MEDS ORDERED: SUCRALFATE 1 GM/10 ML ORAL SUSP GT ONE (12:30)
[2022-03-26] MEDS: ASPirin 81 mg TAB PO SCH (12:55)
[2022-03-26] MEDS: CLOPIDOGREL BISULFATE 75 MG TAB PO SCH (12:55)
[2022-03-26] MEDS: POTASSIUM CHL 20MEQ/100ML 100 ML IV SCH ×2 (12:58→14:45)
[2022-03-26] MEDS: SUCRALFATE 1 GM/10 ML ORAL SUSP GT SCH ×2 (17:49→22:43)
[2022-03-26] MEDS: SENNA 8.6 MG TAB PO SCH (22:43)
[2022-03-26] MEDS: ATORVASTATIN 20 MG TAB PO SCH (22:43)
[2022-03-27] VITALS (106 sets, daily range): BP systolic 77–125; BP diastolic 39–59
[2022-03-27] MEDS: NOREPINEPHRINE 8 MG/250ML KIT 250 ML IV SCH ×2 (01:24→15:49)
[2022-03-27] MEDS: ALBUTEROL SULF 2.5 MG/0.5ML(0.5%) NEB SOLN NEB SCH ×6 (02:37→22:13)
[2022-03-27] MEDS: IPRATROPIUM BROM 0.5 MG/2.5ML INH SOL NEB SCH ×6 (02:37→22:13)
[2022-03-27 05:20] LABS: BUN/Creatinine Ratio 52.6; Calcium 8.8 mg/dL (8.5-10.1)
[2022-03-27 05:21] LABS: Basophils # (auto) 0.1 10 ^3/uL (0-0.2); Basophils % (auto) 0.8 % (0.0-2.0); Eosinophils # (auto) 0.3 10 ^3/uL (0-0.8); Eosinophils % (auto) 1.5 % (0.0-7.0); Hematocrit 36.9 % (41.0-53.0); Lymphocytes # (auto) 0.8 10 ^3/uL (0.4-5.4); Lymphocytes % (auto) 4.1 % (10.0-50.0); Mean Corpuscular Hemoglobin 29.9 pg (28.0-32.0); Mean Corpuscular Hgb Conc. 32.4 g/dL (32.0-36.0); Monocytes # (auto) 1.5 10 ^3/uL (0-1.3); Monocytes % (auto) 8.3 % (0.0-12.0); Neutrophils # (auto) 15.8 10 ^3/uL (1.6-8.6); Neutrophils % (auto) 85.3 % (37.0-80.0); Red Blood Cells 4.01 10^6/uL (4.5-5.90); Red Cell Distribution Width 13.7 % (11.8-14.3); White Blood Cell 18.5 10^3/uL (4.4-10.8)
[2022-03-27] MEDS: MEROPENEM 1GM IVPB 100 ML IV SCH ×3 (05:36→21:26)
[2022-03-27] MEDS: METOCLOPRAMIDE HCL 5MG/ml INJ 2ml VIAL IV SCH ×3 (05:36→21:26)
[2022-03-27] MEDS: InsuLIN REG 1unit/0.01ml Soln (100units/ml) SC SCH ×4 (05:37→18:00)
[2022-03-27] MEDS: FREE WATER GT SCH ×4 (05:37→18:00)
[2022-03-27] MEDS: ACCU-CHEK COMFORT CURVE STRIP VI SCH ×4 (05:38→19:16)
[2022-03-27] MEDS: AMIODARONE 450mg/250ml AE 250 ML IV SCH ×3 (05:38→16:00)
[2022-03-27] MEDS: SUCRALFATE 1 GM/10 ML ORAL SUSP GT SCH ×4 (06:38→21:27)
[2022-03-27] MEDS: MIDAZOLAM DRIP 50 mg/50mL 50 ML IV SCH ×2 (08:36→21:28)
[2022-03-27] MEDS: PROPOFOL 100 ML IV SCH ×2 (09:00→15:50)
[2022-03-27] MEDS: FUROSEMIDE 40 MG/4 ML VIAL IV SCH ×2 (10:00→21:34)
[2022-03-27] MEDS: PANTOPRAZOLE 40 MG/10 ML VIAL INJ IV SCH ×2 (10:02→21:26)
[2022-03-27] MEDS: SODIUM CHLOR 0.9% PF (SALINE LOCK) 10ML VIAL/SYR IV SCH ×2 (10:03→21:27)
[2022-03-27] MEDS: ASPirin 81 mg TAB PO SCH (10:04)
[2022-03-27] MEDS: CLOPIDOGREL BISULFATE 75 MG TAB PO SCH (10:04)
[2022-03-27] MEDS: Nepro With Carb Steady 1 Liter Bottle GT SCH (14:45)
[2022-03-27] MEDS: LINEZOLID 600MG/300ML 300 ML IV SCH (19:54)
[2022-03-27] MEDS: SENNA 8.6 MG TAB PO SCH (21:27)
[2022-03-27] MEDS: ATORVASTATIN 20 MG TAB PO SCH (21:27)
[2022-03-27] MEDS: fentaNYL Drip 2500mCg/250mlNS 250 ML IV SCH (21:29)
[2022-03-28] VITALS (105 sets, daily range): BP systolic 88–136; BP diastolic 48–72
[2022-03-28] MEDS: ALBUTEROL SULF 2.5 MG/0.5ML(0.5%) NEB SOLN NEB SCH ×6 (02:10→22:03)
[2022-03-28] MEDS: IPRATROPIUM BROM 0.5 MG/2.5ML INH SOL NEB SCH ×6 (02:10→22:03)
[2022-03-28 04:13] LABS: Basophils # (auto) 0.1 10 ^3/uL (0-0.2); Basophils % (auto) 0.7 % (0.0-2.0); Eosinophils # (auto) 0.3 10 ^3/uL (0-0.8); Eosinophils % (auto) 2.3 % (0.0-7.0); Hematocrit 34.1 % (41.0-53.0); Hemoglobin 11.1 g/dL (13.5-17.5); Lymphocytes # (auto) 1.5 10 ^3/uL (0.4-5.4); Lymphocytes % (auto) 10.3 % (10.0-50.0); Mean Corpuscular Hemoglobin 29.4 pg (28.0-32.0); Mean Corpuscular Hgb Conc. 32.6 g/dL (32.0-36.0); Mean Corpuscular Volume 90.2 fL (80.0-100.0); Monocytes # (auto) 1.3 10 ^3/uL (0-1.3); Monocytes % (auto) 9.5 % (0.0-12.0); Neutrophils # (auto) 10.9 10 ^3/uL (1.6-8.6); Neutrophils % (auto) 77.2 % (37.0-80.0); Red Blood Cells 3.78 10^6/uL (4.5-5.90); Red Cell Distribution Width 13.5 % (11.8-14.3); White Blood Cell 14.1 10^3/uL (4.4-10.8)
[2022-03-28 04:34] LABS: Potassium 3.3 mmol/L (3.5-5.1)
[2022-03-28 04:37] LABS: Albumin 1.8 g/dL (3.4-5.0); BUN/Creatinine Ratio 60.9; Calcium 8.8 mg/dL (8.5-10.1)
[2022-03-28 04:40] LABS: Bilirubin, Total 0.6 mg/dL (0.2-1.0); Total Protein 5.3 g/dL (6.4-8.2)
[2022-03-28 04:49] LABS: INR 1.06 (0.9-1.15)
[2022-03-28] MEDS: PROPOFOL 100 ML IV SCH (04:52)
[2022-03-28] MEDS: NOREPINEPHRINE 8 MG/250ML KIT 250 ML IV SCH ×2 (04:53→18:52)
[2022-03-28] MEDS: MEROPENEM 1GM IVPB 100 ML IV SCH ×3 (06:00→21:31)
[2022-03-28] MEDS: METOCLOPRAMIDE HCL 5MG/ml INJ 2ml VIAL IV SCH ×3 (06:00→21:30)
[2022-03-28] MEDS: InsuLIN REG 1unit/0.01ml Soln (100units/ml) SC SCH ×4 (06:00→18:34)
[2022-03-28] MEDS: FREE WATER GT SCH ×4 (06:00→18:33)
[2022-03-28] MEDS: ACCU-CHEK COMFORT CURVE STRIP VI SCH ×4 (06:00→18:34)
[2022-03-28] MEDS: SUCRALFATE 1 GM/10 ML ORAL SUSP GT SCH ×4 (06:59→21:30)
[2022-03-28] MEDS ORDERED: POTASSIUM CHL 20MEQ/100ML 100 ML IV ONE (07:15)
[2022-03-28] MEDS: POTASSIUM CHL 20MEQ/100ML 100 ML IV SCH ×4 (08:09→15:10)
[2022-03-28] MEDS: LINEZOLID 600MG/300ML 300 ML IV SCH ×2 (08:23→20:27)
[2022-03-28] MEDS: ASPirin 81 mg TAB PO SCH (10:00)
[2022-03-28] MEDS: SODIUM CHLOR 0.9% PF (SALINE LOCK) 10ML VIAL/SYR IV SCH ×2 (10:21→21:31)
[2022-03-28] MEDS: PANTOPRAZOLE 40 MG/10 ML VIAL INJ IV SCH ×2 (10:51→21:30)
[2022-03-28] MEDS: FUROSEMIDE 40 MG/4 ML VIAL IV SCH ×2 (10:51→21:30)
[2022-03-28] MEDS: CLOPIDOGREL BISULFATE 75 MG TAB PO SCH (10:52)
[2022-03-28] MEDS: AMIODARONE 450mg/250ml AE 250 ML IV SCH ×2 (16:31→21:25)
[2022-03-28] MEDS: SENNA 8.6 MG TAB PO SCH (21:30)
[2022-03-28] MEDS: ATORVASTATIN 20 MG TAB PO SCH (21:31)
[2022-03-29] VITALS (101 sets, daily range): BP systolic 86–131; BP diastolic 43–70
[2022-03-29] MEDS: IPRATROPIUM BROM 0.5 MG/2.5ML INH SOL NEB SCH ×6 (02:17→22:21)
[2022-03-29] MEDS: ALBUTEROL SULF 2.5 MG/0.5ML(0.5%) NEB SOLN NEB SCH ×6 (02:17→22:21)
[2022-03-29 04:05] LABS: Basophils # (auto) 0.1 10 ^3/uL (0-0.2); Basophils % (auto) 0.6 % (0.0-2.0); Eosinophils # (auto) 0.2 10 ^3/uL (0-0.8); Eosinophils % (auto) 1.1 % (0.0-7.0); Hematocrit 34.7 % (41.0-53.0); Hemoglobin 11.2 g/dL (13.5-17.5); Lymphocytes # (auto) 0.9 10 ^3/uL (0.4-5.4); Lymphocytes % (auto) 5.4 % (10.0-50.0); Mean Corpuscular Hemoglobin 28.9 pg (28.0-32.0); Mean Corpuscular Hgb Conc. 32.3 g/dL (32.0-36.0); Mean Corpuscular Volume 89.5 fL (80.0-100.0); Monocytes # (auto) 1.3 10 ^3/uL (0-1.3); Monocytes % (auto) 8.2 % (0.0-12.0); Neutrophils # (auto) 13.4 10 ^3/uL (1.6-8.6); Neutrophils % (auto) 84.7 % (37.0-80.0); Red Blood Cells 3.87 10^6/uL (4.5-5.90); Red Cell Distribution Width 13.7 % (11.8-14.3); White Blood Cell 15.8 10^3/uL (4.4-10.8)
[2022-03-29 04:23] LABS: Calcium 8.2 mg/dL (8.5-10.1); Potassium 3.7 mmol/L (3.5-5.1)
[2022-03-29 04:29] LABS: Albumin 1.8 g/dL (3.4-5.0); BUN/Creatinine Ratio 47.8; Bilirubin, Total 0.6 mg/dL (0.2-1.0); Magnesium 2.5 mg/dL (1.6-2.6); Phosphorus 2.3 mg/dL (2.5-4.90); Total Protein 5.3 g/dL (6.4-8.2)
[2022-03-29] MEDS: METOCLOPRAMIDE HCL 5MG/ml INJ 2ml VIAL IV SCH ×3 (05:39→21:08)
[2022-03-29] MEDS: MEROPENEM 1GM IVPB 100 ML IV SCH ×3 (05:40→22:22)
[2022-03-29] MEDS: FREE WATER GT SCH ×4 (05:40→18:05)
[2022-03-29] MEDS: ACCU-CHEK COMFORT CURVE STRIP VI SCH ×4 (05:45→18:04)
[2022-03-29] MEDS: InsuLIN REG 1unit/0.01ml Soln (100units/ml) SC SCH ×4 (05:45→18:00)
[2022-03-29] MEDS: NOREPINEPHRINE 8 MG/250ML KIT 250 ML IV SCH ×2 (06:45→23:53)
[2022-03-29] MEDS: MIDAZOLAM DRIP 50 mg/50mL 50 ML IV SCH (06:45)
[2022-03-29] MEDS: SUCRALFATE 1 GM/10 ML ORAL SUSP GT SCH ×4 (08:11→21:08)
[2022-03-29] MEDS: LINEZOLID 600MG/300ML 300 ML IV SCH ×2 (08:11→20:18)
[2022-03-29] MEDS: PROPOFOL 100 ML IV SCH (09:00)
[2022-03-29] MEDS: CLOPIDOGREL BISULFATE 75 MG TAB PO SCH (09:49)
[2022-03-29] MEDS: PANTOPRAZOLE 40 MG/10 ML VIAL INJ IV SCH ×2 (09:49→21:08)
[2022-03-29] MEDS: ASPirin 81 mg TAB PO SCH (09:49)
[2022-03-29] MEDS: SODIUM CHLOR 0.9% PF (SALINE LOCK) 10ML VIAL/SYR IV SCH ×2 (09:50→21:08)
[2022-03-29] MEDS: FUROSEMIDE 40 MG/4 ML VIAL IV SCH ×2 (09:50→21:11)
[2022-03-29] MEDS: fentaNYL Drip 2500mCg/250mlNS 250 ML IV SCH (10:45)
[2022-03-29] MEDS: SENNA 8.6 MG TAB PO SCH (21:09)
[2022-03-29] MEDS: AMIODARONE HCL 200 MG TAB PO SCH (21:09)
[2022-03-29] MEDS: ATORVASTATIN 20 MG TAB PO SCH (21:09)
[2022-03-30] VITALS (102 sets, daily range): BP systolic 83–123; BP diastolic 40–72
[2022-03-30] MEDS: FREE WATER GT SCH ×4 (00:06→18:11)
[2022-03-30] MEDS: ACCU-CHEK COMFORT CURVE STRIP VI SCH ×4 (00:07→18:12)
[2022-03-30] MEDS: InsuLIN REG 1unit/0.01ml Soln (100units/ml) SC SCH ×4 (00:12→18:00)
[2022-03-30] MEDS: ALBUTEROL SULF 2.5 MG/0.5ML(0.5%) NEB SOLN NEB SCH ×6 (02:34→22:16)
[2022-03-30] MEDS: IPRATROPIUM BROM 0.5 MG/2.5ML INH SOL NEB SCH ×6 (02:34→22:16)
[2022-03-30 03:52] LABS: Basophils # (auto) 0.1 10 ^3/uL (0-0.2); Basophils % (auto) 0.3 % (0.0-2.0); Eosinophils # (auto) 0.1 10 ^3/uL (0-0.8); Eosinophils % (auto) 0.4 % (0.0-7.0); Hematocrit 34.7 % (41.0-53.0); Hemoglobin 11.4 g/dL (13.5-17.5); Lymphocytes # (auto) 1.1 10 ^3/uL (0.4-5.4); Lymphocytes % (auto) 6.2 % (10.0-50.0); Mean Corpuscular Hemoglobin 29.6 pg (28.0-32.0); Mean Corpuscular Hgb Conc. 32.8 g/dL (32.0-36.0); Mean Corpuscular Volume 90.1 fL (80.0-100.0); Monocytes # (auto) 1.3 10 ^3/uL (0-1.3); Monocytes % (auto) 7.4 % (0.0-12.0); Neutrophils # (auto) 15.2 10 ^3/uL (1.6-8.6); Neutrophils % (auto) 85.7 % (37.0-80.0); Red Blood Cells 3.85 10^6/uL (4.5-5.90); Red Cell Distribution Width 13.8 % (11.8-14.3); White Blood Cell 17.7 10^3/uL (4.4-10.8)
[2022-03-30 03:57] LABS: BUN/Creatinine Ratio 42.2; Calcium 8.7 mg/dL (8.5-10.1); Magnesium 2.3 mg/dL (1.6-2.6); Potassium 3.2 mmol/L (3.5-5.1)
[2022-03-30] MEDS: MEROPENEM 1GM IVPB 100 ML IV SCH ×3 (05:42→22:11)
[2022-03-30] MEDS: METOCLOPRAMIDE HCL 5MG/ml INJ 2ml VIAL IV SCH ×3 (05:50→22:09)
[2022-03-30] MEDS: MIDAZOLAM DRIP 50 mg/50mL 50 ML IV SCH (05:50)
[2022-03-30] MEDS: SUCRALFATE 1 GM/10 ML ORAL SUSP GT SCH ×4 (06:30→22:04)
[2022-03-30] MEDS: fentaNYL Drip 2500mCg/250mlNS 250 ML IV SCH (08:05)
[2022-03-30] MEDS: LINEZOLID 600MG/300ML 300 ML IV SCH ×2 (08:31→20:18)
[2022-03-30] MEDS: PROPOFOL 100 ML IV SCH ×3 (09:00→22:11)
[2022-03-30] MEDS: PANTOPRAZOLE 40 MG/10 ML VIAL INJ IV SCH ×2 (10:13→22:06)
[2022-03-30] MEDS: FUROSEMIDE 40 MG/4 ML VIAL IV SCH ×2 (10:13→22:06)
[2022-03-30] MEDS: AMIODARONE HCL 200 MG TAB PO SCH ×2 (10:14→22:09)
[2022-03-30] MEDS: ASPirin 81 mg TAB PO SCH (10:14)
[2022-03-30] MEDS: CLOPIDOGREL BISULFATE 75 MG TAB PO SCH (10:15)
[2022-03-30] MEDS: SODIUM CHLOR 0.9% PF (SALINE LOCK) 10ML VIAL/SYR IV SCH ×2 (10:15→22:09)
[2022-03-30] MEDS: POTASSIUM CHL 20MEQ/100ML 100 ML IV SCH ×2 (12:27→14:00)
[2022-03-30] MEDS: SENNA 8.6 MG TAB PO SCH (22:10)
[2022-03-30] MEDS: ATORVASTATIN 20 MG TAB PO SCH (22:10)
[2022-03-31] VITALS (104 sets, daily range): BP systolic 86–120; BP diastolic 43–62
[2022-03-31] MEDS: ALBUTEROL SULF 2.5 MG/0.5ML(0.5%) NEB SOLN NEB SCH ×6 (02:08→22:47)
[2022-03-31] MEDS: IPRATROPIUM BROM 0.5 MG/2.5ML INH SOL NEB SCH ×6 (02:08→22:48)
[2022-03-31 04:00] LABS: Basophils # (auto) 0.1 10 ^3/uL (0-0.2); Eosinophils # (auto) 0.4 10 ^3/uL (0-0.8); Eosinophils % (auto) 2.6 % (0.0-7.0); Hematocrit 32.5 % (41.0-53.0); Hemoglobin 10.7 g/dL (13.5-17.5); Lymphocytes # (auto) 1.8 10 ^3/uL (0.4-5.4); Lymphocytes % (auto) 11.7 % (10.0-50.0); Mean Corpuscular Hemoglobin 29.6 pg (28.0-32.0); Mean Corpuscular Volume 89.7 fL (80.0-100.0); Monocytes # (auto) 0.9 10 ^3/uL (0-1.3); Monocytes % (auto) 5.6 % (0.0-12.0); Neutrophils # (auto) 12.4 10 ^3/uL (1.6-8.6); Neutrophils % (auto) 79.1 % (37.0-80.0); Red Blood Cells 3.62 10^6/uL (4.5-5.90); Red Cell Distribution Width 13.6 % (11.8-14.3); White Blood Cell 15.6 10^3/uL (4.4-10.8)
[2022-03-31 04:14] LABS: Potassium 3.2 mmol/L (3.5-5.1)
[2022-03-31 04:15] LABS: Magnesium 2.1 mg/dL (1.6-2.6)
[2022-03-31] MEDS: POTASSIUM CHL 20MEQ/100ML 100 ML IV SCH ×2 (05:49→07:30)
[2022-03-31] MEDS: PROPOFOL 100 ML IV SCH ×2 (05:49→09:00)
[2022-03-31] MEDS: fentaNYL Drip 2500mCg/250mlNS 250 ML IV SCH (05:49)
[2022-03-31] MEDS: ACCU-CHEK COMFORT CURVE STRIP VI SCH ×4 (06:00→18:28)
[2022-03-31] MEDS: InsuLIN REG 1unit/0.01ml Soln (100units/ml) SC SCH ×4 (06:00→18:00)
[2022-03-31] MEDS: FREE WATER GT SCH ×5 (06:03→21:14)
[2022-03-31] MEDS: METOCLOPRAMIDE HCL 5MG/ml INJ 2ml VIAL IV SCH ×3 (06:04→21:13)
[2022-03-31] MEDS: MEROPENEM 1GM IVPB 100 ML IV SCH ×3 (06:04→21:13)
[2022-03-31] MEDS: SUCRALFATE 1 GM/10 ML ORAL SUSP GT SCH ×4 (06:43→21:12)
[2022-03-31] MEDS: NOREPINEPHRINE 8 MG/250ML KIT 250 ML IV SCH (06:45)
[2022-03-31] MEDS: MIDAZOLAM DRIP 50 mg/50mL 50 ML IV SCH (06:45)
[2022-03-31] MEDS: LINEZOLID 600MG/300ML 300 ML IV SCH ×2 (09:00→21:02)
[2022-03-31] MEDS: FUROSEMIDE 40 MG/4 ML VIAL IV SCH ×2 (10:57→21:12)
[2022-03-31] MEDS: PANTOPRAZOLE 40 MG/10 ML VIAL INJ IV SCH ×2 (10:58→21:13)
[2022-03-31] MEDS: SODIUM CHLOR 0.9% PF (SALINE LOCK) 10ML VIAL/SYR IV SCH ×2 (10:58→21:13)
[2022-03-31] MEDS: CLOPIDOGREL BISULFATE 75 MG TAB PO SCH (10:59)
[2022-03-31] MEDS: ASPirin 81 mg TAB PO SCH (10:59)
[2022-03-31] MEDS: AMIODARONE HCL 200 MG TAB PO SCH ×2 (10:59→21:14)
[2022-03-31] MEDS ORDERED: ENOXAPARIN SOD 100 MG/1 ML SYRINGE SC ONE (13:30)
[2022-03-31] MEDS: ATORVASTATIN 20 MG TAB PO SCH (21:14)
[2022-03-31] MEDS: SENNA 8.6 MG TAB PO SCH (21:14)
[2022-04-01] VITALS (101 sets, daily range): BP systolic 96–148; BP diastolic 29–69
[2022-04-01] MEDS: ACCU-CHEK COMFORT CURVE STRIP VI SCH ×4 (00:10→18:10)
[2022-04-01] MEDS: ALBUTEROL SULF 2.5 MG/0.5ML(0.5%) NEB SOLN NEB SCH ×6 (02:19→22:46)
[2022-04-01] MEDS: IPRATROPIUM BROM 0.5 MG/2.5ML INH SOL NEB SCH ×6 (02:19→22:46)
[2022-04-01] MEDS: FREE WATER GT SCH ×3 (03:37→17:34)
[2022-04-01] MEDS: ENOXAPARIN SOD 80 MG/0.8ML SYRINGE SC SCH ×3 (03:37→16:30)
[2022-04-01] MEDS: METOCLOPRAMIDE HCL 5MG/ml INJ 2ml VIAL IV SCH ×3 (05:00→22:31)
[2022-04-01] MEDS: MEROPENEM 1GM IVPB 100 ML IV SCH ×3 (05:00→22:33)
[2022-04-01 05:03] LABS: Basophils # (auto) 0.1 10 ^3/uL (0-0.2); Basophils % (auto) 1.3 % (0.0-2.0); Eosinophils # (auto) 0.5 10 ^3/uL (0-0.8); Eosinophils % (auto) 4.7 % (0.0-7.0); Hematocrit 34.3 % (41.0-53.0); Hemoglobin 11.4 g/dL (13.5-17.5); Lymphocytes # (auto) 1.4 10 ^3/uL (0.4-5.4); Lymphocytes % (auto) 13.2 % (10.0-50.0); Mean Corpuscular Hemoglobin 29.4 pg (28.0-32.0); Mean Corpuscular Hgb Conc. 33.3 g/dL (32.0-36.0); Mean Corpuscular Volume 88.3 fL (80.0-100.0); Monocytes # (auto) 0.7 10 ^3/uL (0-1.3); Neutrophils # (auto) 8.2 10 ^3/uL (1.6-8.6); Neutrophils % (auto) 74.8 % (37.0-80.0); Red Blood Cells 3.88 10^6/uL (4.5-5.90); Red Cell Distribution Width 13.6 % (11.8-14.3); White Blood Cell 10.9 10^3/uL (4.4-10.8)
[2022-04-01] MEDS: InsuLIN REG 1unit/0.01ml Soln (100units/ml) SC SCH ×4 (05:05→18:00)
[2022-04-01 05:16] LABS: Potassium 3.1 mmol/L (3.5-5.1)
[2022-04-01 05:19] LABS: Magnesium 1.9 mg/dL (1.6-2.6)
[2022-04-01] MEDS: MIDAZOLAM DRIP 50 mg/50mL 50 ML IV SCH (06:45)
[2022-04-01] MEDS: NOREPINEPHRINE 8 MG/250ML KIT 250 ML IV SCH ×2 (07:00→14:18)
[2022-04-01] MEDS: SUCRALFATE 1 GM/10 ML ORAL SUSP GT SCH ×4 (07:01→22:31)
[2022-04-01] MEDS: LINEZOLID 600MG/300ML 300 ML IV SCH ×2 (09:26→20:00)
[2022-04-01] MEDS: PANTOPRAZOLE 40 MG/10 ML VIAL INJ IV SCH ×2 (09:34→22:31)
[2022-04-01] MEDS: CLOPIDOGREL BISULFATE 75 MG TAB PO SCH (09:34)
[2022-04-01] MEDS: ASPirin 81 mg TAB PO SCH (09:34)
[2022-04-01] MEDS: SODIUM CHLOR 0.9% PF (SALINE LOCK) 10ML VIAL/SYR IV SCH ×2 (09:35→22:00)
[2022-04-01] MEDS: AMIODARONE HCL 200 MG TAB PO SCH ×2 (09:35→22:31)
[2022-04-01] MEDS: fentaNYL Drip 2500mCg/250mlNS 250 ML IV SCH ×2 (10:45→18:15)
[2022-04-01] MEDS: POTASSIUM CHL 20MEQ/100ML 100 ML IV SCH ×2 (10:57→12:32)
[2022-04-01] MEDS ORDERED: POTASSIUM EFFERVESENT TAB 25 MEQ GT ONE (13:00)
[2022-04-01] MEDS: FUROSEMIDE 40 MG/4 ML VIAL IV SCH ×2 (14:15→22:32)
[2022-04-01] MEDS: PROPOFOL 100 ML IV SCH ×3 (14:18→23:12)
[2022-04-01] MEDS: ATORVASTATIN 20 MG TAB PO SCH (22:31)
[2022-04-01] MEDS: SENNA 8.6 MG TAB PO SCH (22:31)
[2022-04-02] VITALS (76 sets, daily range): BP systolic 99–142; BP diastolic 18–59
[2022-04-02] MEDS: ACCU-CHEK COMFORT CURVE STRIP VI SCH ×4 (00:13→17:47)
[2022-04-02] MEDS: FREE WATER GT SCH ×4 (00:14→17:47)
[2022-04-02] MEDS: ENOXAPARIN SOD 80 MG/0.8ML SYRINGE SC SCH ×2 (02:00→14:00)
[2022-04-02] MEDS: PROPOFOL 100 ML IV SCH ×5 (02:29→23:13)
[2022-04-02 03:40] LABS: Basophils # (auto) 0.2 10 ^3/uL (0-0.2); Basophils % (auto) 1.4 % (0.0-2.0); Eosinophils # (auto) 0.5 10 ^3/uL (0-0.8); Eosinophils % (auto) 4.6 % (0.0-7.0); Hematocrit 34.2 % (41.0-53.0); Hemoglobin 11.2 g/dL (13.5-17.5); Lymphocytes # (auto) 1.3 10 ^3/uL (0.4-5.4); Lymphocytes % (auto) 10.9 % (10.0-50.0); Mean Corpuscular Hemoglobin 28.9 pg (28.0-32.0); Mean Corpuscular Hgb Conc. 32.7 g/dL (32.0-36.0); Mean Corpuscular Volume 88.3 fL (80.0-100.0); Monocytes # (auto) 0.6 10 ^3/uL (0-1.3); Monocytes % (auto) 5.1 % (0.0-12.0); Neutrophils # (auto) 9.1 10 ^3/uL (1.6-8.6); Red Blood Cells 3.88 10^6/uL (4.5-5.90); Red Cell Distribution Width 13.7 % (11.8-14.3); White Blood Cell 11.7 10^3/uL (4.4-10.8)
[2022-04-02 03:56] LABS: INR 1.16 (0.9-1.15)
[2022-04-02 04:00] LABS: BUN/Creatinine Ratio 40.5; Calcium 7.9 mg/dL (8.5-10.1); Potassium 3.1 mmol/L (3.5-5.1)
[2022-04-02] MEDS: IPRATROPIUM BROM 0.5 MG/2.5ML INH SOL NEB SCH ×6 (04:47→22:25)
[2022-04-02] MEDS: ALBUTEROL SULF 2.5 MG/0.5ML(0.5%) NEB SOLN NEB SCH ×6 (04:47→22:25)
[2022-04-02] MEDS: NOREPINEPHRINE 8 MG/250ML KIT 250 ML IV SCH ×2 (04:55→21:11)
[2022-04-02] MEDS: InsuLIN REG 1unit/0.01ml Soln (100units/ml) SC SCH ×4 (05:47→17:48)
[2022-04-02] MEDS: METOCLOPRAMIDE HCL 5MG/ml INJ 2ml VIAL IV SCH ×3 (05:47→22:01)
[2022-04-02] MEDS: MEROPENEM 1GM IVPB 100 ML IV SCH ×3 (05:48→22:08)
[2022-04-02] MEDS: MIDAZOLAM DRIP 50 mg/50mL 50 ML IV SCH (06:45)
[2022-04-02] MEDS: SUCRALFATE 1 GM/10 ML ORAL SUSP GT SCH ×4 (07:00→22:00)
[2022-04-02] MEDS ORDERED: BENZOCAINE (DENTAL) 20 % SPRAY 60ML MT ONE (07:31)
[2022-04-02] MEDS ORDERED: EPINEPHrine HCL 1 MG/10 ML SYRG ONE (07:33)
[2022-04-02] MEDS ORDERED: LIDOCAINE 2% JELLY 11ml (GLYDO) ONE (07:34)
[2022-04-02] MEDS ORDERED: GLYCOPYRROLATE 0.2 MG/ML 1ML VIAL ONE (07:35)
[2022-04-02] MEDS ORDERED: FLUMAZENIL 0.1 MG/ML INJ 10ML MDV IV ONE (07:38)
[2022-04-02] MEDS ORDERED: NALOXONE HCL 0.4 MG/ML VIAL ONE (07:38)
[2022-04-02] MEDS ORDERED: SODIUM CHLORIDE LOCK 0 ML ONE (07:42)
[2022-04-02] MEDS ORDERED: LIDOCAINE HCL 2% TOP JELLY 5ML TOP ONE (07:43)
[2022-04-02] MEDS ORDERED: EPINEPHrine HCL 1 MG/1 ML AMP ONE (07:43)
[2022-04-02] MEDS ORDERED: LIDOCAINE 2% (LOCAL ANESTH.) PF 5ml SDV ONE (07:51)
[2022-04-02] MEDS ORDERED: LIDOCAINE W/ EPINEPHRINE 2% INJ 20ML VIAL ONE (07:53)
[2022-04-02] MEDS: LINEZOLID 600MG/300ML 300 ML IV SCH ×2 (08:00→20:18)
[2022-04-02] MEDS: ASPirin 81 mg TAB PO SCH (10:00)
[2022-04-02] MEDS: CLOPIDOGREL BISULFATE 75 MG TAB PO SCH (10:00)
[2022-04-02] MEDS: POTASSIUM EFFERVESENT TAB 25 MEQ GT SCH ×2 (10:18→22:06)
[2022-04-02] MEDS: AMIODARONE HCL 200 MG TAB PO SCH ×2 (10:19→22:04)
[2022-04-02] MEDS: SODIUM CHLOR 0.9% PF (SALINE LOCK) 10ML VIAL/SYR IV SCH ×2 (10:19→22:03)
[2022-04-02] MEDS: PANTOPRAZOLE 40 MG/10 ML VIAL INJ IV SCH ×2 (10:20→22:00)
[2022-04-02] MEDS: FUROSEMIDE 40 MG/4 ML VIAL IV SCH ×2 (10:21→22:00)
[2022-04-02] MEDS: fentaNYL Drip 2500mCg/250mlNS 250 ML IV SCH (13:20)
[2022-04-02] MEDS ORDERED: IOHEXOL 350 MG/ML 100ML IJ ONE ×2 (17:42→18:19)
[2022-04-02] MEDS ORDERED: LIDOCAINE 2%HCL (LOCAL ANESTH.) INJ 10ml MDV ONE (17:42)
[2022-04-02] MEDS ORDERED: SODIUM CHL 0.9% 50 ML ONE (17:55)
[2022-04-02] MEDS ORDERED: ANGIOMAX 250 MG VIAL IV ONE (17:55)
[2022-04-02] MEDS: SENNA 8.6 MG TAB PO SCH (22:00)
[2022-04-02] MEDS: ATORVASTATIN 20 MG TAB PO SCH (22:06)
[2022-04-03] VITALS (102 sets, daily range): BP systolic 91–134; BP diastolic 34–64
[2022-04-03] MEDS: FREE WATER GT SCH ×4 (00:41→17:30)
[2022-04-03] MEDS: ENOXAPARIN SOD 80 MG/0.8ML SYRINGE SC SCH ×2 (02:11→13:47)
[2022-04-03] MEDS: IPRATROPIUM BROM 0.5 MG/2.5ML INH SOL NEB SCH ×5 (02:22→18:20)
[2022-04-03] MEDS: ALBUTEROL SULF 2.5 MG/0.5ML(0.5%) NEB SOLN NEB SCH ×5 (02:22→18:20)
[2022-04-03] MEDS: NOREPINEPHRINE 8 MG/250ML KIT 250 ML IV SCH ×4 (02:39→18:04)
[2022-04-03] MEDS: fentaNYL Drip 2500mCg/250mlNS 250 ML IV SCH ×2 (02:43→13:20)
[2022-04-03 03:32] LABS: Basophils # (auto) 0.2 10 ^3/uL (0-0.2); Basophils % (auto) 1.2 % (0.0-2.0); Eosinophils # (auto) 0.5 10 ^3/uL (0-0.8); Eosinophils % (auto) 4.1 % (0.0-7.0); Hematocrit 34.1 % (41.0-53.0); Hemoglobin 11.4 g/dL (13.5-17.5); Lymphocytes # (auto) 1.5 10 ^3/uL (0.4-5.4); Lymphocytes % (auto) 12.2 % (10.0-50.0); Mean Corpuscular Hemoglobin 29.5 pg (28.0-32.0); Mean Corpuscular Hgb Conc. 33.5 g/dL (32.0-36.0); Mean Corpuscular Volume 88.1 fL (80.0-100.0); Monocytes # (auto) 0.6 10 ^3/uL (0-1.3); Monocytes % (auto) 5.2 % (0.0-12.0); Neutrophils # (auto) 9.5 10 ^3/uL (1.6-8.6); Neutrophils % (auto) 77.3 % (37.0-80.0); Red Blood Cells 3.87 10^6/uL (4.5-5.90); Red Cell Distribution Width 13.5 % (11.8-14.3); White Blood Cell 12.3 10^3/uL (4.4-10.8)
[2022-04-03 03:46] LABS: BUN/Creatinine Ratio 44.1; Calcium 8.4 mg/dL (8.5-10.1); Potassium 3.2 mmol/L (3.5-5.1)
[2022-04-03] MEDS: PROPOFOL 100 ML IV SCH ×5 (03:47→16:22)
[2022-04-03] MEDS: MEROPENEM 1GM IVPB 100 ML IV SCH ×3 (05:52→22:55)
[2022-04-03] MEDS: ACCU-CHEK COMFORT CURVE STRIP VI SCH ×4 (05:53→17:30)
[2022-04-03] MEDS: InsuLIN REG 1unit/0.01ml Soln (100units/ml) SC SCH ×4 (05:53→17:30)
[2022-04-03] MEDS: METOCLOPRAMIDE HCL 5MG/ml INJ 2ml VIAL IV SCH ×3 (05:53→22:54)
[2022-04-03] MEDS: MIDAZOLAM DRIP 50 mg/50mL 50 ML IV SCH (06:45)
[2022-04-03] MEDS: LINEZOLID 600MG/300ML 300 ML IV SCH ×2 (07:54→20:43)
[2022-04-03] MEDS: SUCRALFATE 1 GM/10 ML ORAL SUSP GT SCH ×4 (07:56→22:00)
[2022-04-03] MEDS: ASPirin 81 mg TAB PO SCH (08:50)
[2022-04-03] MEDS: PANTOPRAZOLE 40 MG/10 ML VIAL INJ IV SCH ×2 (08:50→22:52)
[2022-04-03] MEDS: CLOPIDOGREL BISULFATE 75 MG TAB PO SCH (08:51)
[2022-04-03] MEDS: AMIODARONE HCL 200 MG TAB PO SCH ×2 (08:51→22:57)
[2022-04-03] MEDS: POTASSIUM EFFERVESENT TAB 25 MEQ GT SCH ×2 (08:51→22:57)
[2022-04-03] MEDS: SODIUM CHLOR 0.9% PF (SALINE LOCK) 10ML VIAL/SYR IV SCH ×2 (08:51→22:58)
[2022-04-03] MEDS: FUROSEMIDE 40 MG/4 ML VIAL IV SCH ×2 (08:52→22:00)
[2022-04-03] MEDS ORDERED: POTASSIUM EFFERVESENT TAB 25 MEQ GT ONE (16:00)
[2022-04-03] MEDS ORDERED: FLUCONAZOLE 200MG/100ML 100 ML IV ONE (16:00)
[2022-04-03] MEDS: SENNA 8.6 MG TAB PO SCH (22:56)
[2022-04-03] MEDS: ATORVASTATIN 20 MG TAB PO SCH (22:57)
[2022-04-04] VITALS (104 sets, daily range): BP systolic 101–146; BP diastolic 38–52
[2022-04-04] MEDS: NOREPINEPHRINE 8 MG/250ML KIT 250 ML IV SCH ×5 (00:19→22:17)
[2022-04-04] MEDS: ACCU-CHEK COMFORT CURVE STRIP VI SCH ×5 (00:20→23:43)
[2022-04-04] MEDS: FREE WATER GT SCH ×5 (00:20→23:43)
[2022-04-04] MEDS: PROPOFOL 100 ML IV SCH ×4 (01:19→22:16)
[2022-04-04] MEDS: fentaNYL Drip 2500mCg/250mlNS 250 ML IV SCH ×2 (01:31→09:50)
[2022-04-04] MEDS: ENOXAPARIN SOD 80 MG/0.8ML SYRINGE SC SCH ×2 (02:00→14:17)
[2022-04-04] MEDS: ALBUTEROL SULF 2.5 MG/0.5ML(0.5%) NEB SOLN NEB SCH ×7 (02:28→22:19)
[2022-04-04] MEDS: IPRATROPIUM BROM 0.5 MG/2.5ML INH SOL NEB SCH ×7 (02:28→22:19)
[2022-04-04 04:45] LABS: Basophils # (auto) 0.1 10 ^3/uL (0-0.2); Basophils % (auto) 1.1 % (0.0-2.0); Eosinophils # (auto) 0.5 10 ^3/uL (0-0.8); Eosinophils % (auto) 4.1 % (0.0-7.0); Hematocrit 32.4 % (41.0-53.0); Hemoglobin 10.8 g/dL (13.5-17.5); Lymphocytes # (auto) 1.5 10 ^3/uL (0.4-5.4); Lymphocytes % (auto) 12.6 % (10.0-50.0); Mean Corpuscular Hemoglobin 29.1 pg (28.0-32.0); Mean Corpuscular Hgb Conc. 33.3 g/dL (32.0-36.0); Mean Corpuscular Volume 87.4 fL (80.0-100.0); Monocytes # (auto) 0.8 10 ^3/uL (0-1.3); Monocytes % (auto) 6.5 % (0.0-12.0); Neutrophils % (auto) 75.7 % (37.0-80.0); Red Blood Cells 3.71 10^6/uL (4.5-5.90); Red Cell Distribution Width 13.9 % (11.8-14.3); White Blood Cell 11.9 10^3/uL (4.4-10.8)
[2022-04-04 04:53] LABS: Potassium 4.8 mmol/L (3.5-5.1)
[2022-04-04 05:00] LABS: BUN/Creatinine Ratio 43.8; Calcium 8.2 mg/dL (8.5-10.1)
[2022-04-04] MEDS: MEROPENEM 1GM IVPB 100 ML IV SCH ×3 (05:53→22:00)
[2022-04-04] MEDS: InsuLIN REG 1unit/0.01ml Soln (100units/ml) SC SCH ×5 (05:54→23:42)
[2022-04-04] MEDS: METOCLOPRAMIDE HCL 5MG/ml INJ 2ml VIAL IV SCH ×3 (05:54→21:57)
[2022-04-04] MEDS: SUCRALFATE 1 GM/10 ML ORAL SUSP GT SCH ×4 (06:41→21:57)
[2022-04-04] MEDS: MIDAZOLAM DRIP 50 mg/50mL 50 ML IV SCH (06:45)
[2022-04-04] MEDS: LINEZOLID 600MG/300ML 300 ML IV SCH (07:31)
[2022-04-04] MEDS: FLUCONAZOLE 200MG/100ML 100 ML IV SCH (09:11)
[2022-04-04] MEDS: ASPirin 81 mg TAB PO SCH (09:11)
[2022-04-04] MEDS: CLOPIDOGREL BISULFATE 75 MG TAB PO SCH (09:11)
[2022-04-04] MEDS: AMIODARONE HCL 200 MG TAB PO SCH ×2 (09:11→21:58)
[2022-04-04] MEDS: FUROSEMIDE 40 MG/4 ML VIAL IV SCH ×2 (09:11→21:58)
[2022-04-04] MEDS: POTASSIUM EFFERVESENT TAB 25 MEQ GT SCH ×2 (09:11→21:58)
[2022-04-04] MEDS: PANTOPRAZOLE 40 MG/10 ML VIAL INJ IV SCH ×2 (09:11→21:58)
[2022-04-04] MEDS: SODIUM CHLOR 0.9% PF (SALINE LOCK) 10ML VIAL/SYR IV SCH ×2 (09:12→21:59)
[2022-04-04] MEDS: SENNA 8.6 MG TAB PO SCH (21:58)
[2022-04-04] MEDS: ATORVASTATIN 20 MG TAB PO SCH (21:58)
[2022-04-05] VITALS (97 sets, daily range): BP systolic 79–157; BP diastolic 16–45
[2022-04-05] MEDS: ENOXAPARIN SOD 80 MG/0.8ML SYRINGE SC SCH ×2 (02:00→13:38)
[2022-04-05] MEDS: fentaNYL Drip 2500mCg/250mlNS 250 ML IV SCH (02:04)
[2022-04-05] MEDS: IPRATROPIUM BROM 0.5 MG/2.5ML INH SOL NEB SCH ×6 (02:15→22:00)
[2022-04-05] MEDS: ALBUTEROL SULF 2.5 MG/0.5ML(0.5%) NEB SOLN NEB SCH ×6 (02:15→22:00)
[2022-04-05 03:47] LABS: Basophils # (auto) 0.1 10 ^3/uL (0-0.2); Eosinophils # (auto) 0.4 10 ^3/uL (0-0.8); Eosinophils % (auto) 3.1 % (0.0-7.0); Hematocrit 30.9 % (41.0-53.0); Hemoglobin 10.2 g/dL (13.5-17.5); Lymphocytes # (auto) 1.3 10 ^3/uL (0.4-5.4); Mean Corpuscular Hemoglobin 29.5 pg (28.0-32.0); Mean Corpuscular Hgb Conc. 32.9 g/dL (32.0-36.0); Mean Corpuscular Volume 89.7 fL (80.0-100.0); Monocytes # (auto) 0.6 10 ^3/uL (0-1.3); Monocytes % (auto) 5.2 % (0.0-12.0); Neutrophils # (auto) 9.4 10 ^3/uL (1.6-8.6); Neutrophils % (auto) 79.7 % (37.0-80.0); Nucleated Red Blood Cells % 0.1 %; Red Blood Cells 3.44 10^6/uL (4.5-5.90); Red Cell Distribution Width 14.2 % (11.8-14.3); White Blood Cell 11.8 10^3/uL (4.4-10.8)
[2022-04-05 04:12] LABS: BUN/Creatinine Ratio 44.4; Calcium 7.9 mg/dL (8.5-10.1); Potassium 4.8 mmol/L (3.5-5.1)
[2022-04-05] MEDS: NOREPINEPHRINE 8 MG/250ML KIT 250 ML IV SCH (05:12)
[2022-04-05] MEDS: METOCLOPRAMIDE HCL 5MG/ml INJ 2ml VIAL IV SCH ×3 (05:44→22:07)
[2022-04-05] MEDS: MEROPENEM 1GM IVPB 100 ML IV SCH ×3 (05:44→22:06)
[2022-04-05] MEDS: SUCRALFATE 1 GM/10 ML ORAL SUSP GT SCH ×4 (05:44→22:08)
[2022-04-05] MEDS: ACCU-CHEK COMFORT CURVE STRIP VI SCH ×2 (05:45→13:37)
[2022-04-05] MEDS: InsuLIN REG 1unit/0.01ml Soln (100units/ml) SC SCH ×2 (05:45→13:37)
[2022-04-05] MEDS: FREE WATER GT SCH ×3 (05:46→17:17)
[2022-04-05] MEDS: PROPOFOL 100 ML IV SCH ×2 (06:30→20:09)
[2022-04-05] MEDS: POTASSIUM EFFERVESENT TAB 25 MEQ GT SCH ×2 (09:17→22:06)
[2022-04-05] MEDS: FUROSEMIDE 40 MG/4 ML VIAL IV SCH ×2 (09:17→22:07)
[2022-04-05] MEDS: SODIUM CHLOR 0.9% PF (SALINE LOCK) 10ML VIAL/SYR IV SCH ×2 (09:18→22:08)
[2022-04-05] MEDS: PANTOPRAZOLE 40 MG/10 ML VIAL INJ IV SCH ×2 (09:18→22:07)
[2022-04-05] MEDS: ASPirin 81 mg TAB PO SCH (09:18)
[2022-04-05] MEDS: CLOPIDOGREL BISULFATE 75 MG TAB PO SCH (09:18)
[2022-04-05] MEDS: AMIODARONE HCL 200 MG TAB PO SCH ×2 (09:18→22:07)
[2022-04-05] MEDS: MIDAZOLAM DRIP 50 mg/50mL 50 ML IV SCH (09:19)
[2022-04-05] MEDS: FLUCONAZOLE 200MG/100ML 100 ML IV SCH (10:00)
[2022-04-05] MEDS: SENNA 8.6 MG TAB PO SCH (22:07)
[2022-04-05] MEDS: ATORVASTATIN 20 MG TAB PO SCH (22:07)
[2022-04-06] VITALS (101 sets, daily range): BP systolic 109–162; BP diastolic 26–52
[2022-04-06] MEDS: FREE WATER GT SCH ×4 (00:11→17:09)
[2022-04-06] MEDS: ENOXAPARIN SOD 80 MG/0.8ML SYRINGE SC SCH ×2 (02:02→13:39)
[2022-04-06] MEDS: PROPOFOL 100 ML IV SCH ×2 (02:04→19:39)
[2022-04-06] MEDS: ALBUTEROL SULF 2.5 MG/0.5ML(0.5%) NEB SOLN NEB SCH ×6 (02:44→22:03)
[2022-04-06] MEDS: IPRATROPIUM BROM 0.5 MG/2.5ML INH SOL NEB SCH ×6 (02:45→22:04)
[2022-04-06] MEDS: NOREPINEPHRINE 8 MG/250ML KIT 250 ML IV SCH ×2 (03:02→17:13)
[2022-04-06 03:37] LABS: Basophils # (auto) 0.1 10 ^3/uL (0-0.2); Basophils % (auto) 0.9 % (0.0-2.0); Eosinophils # (auto) 0.3 10 ^3/uL (0-0.8); Eosinophils % (auto) 2.6 % (0.0-7.0); Hematocrit 28.6 % (41.0-53.0); Hemoglobin 9.6 g/dL (13.5-17.5); Lymphocytes % (auto) 8.9 % (10.0-50.0); Mean Corpuscular Hgb Conc. 33.6 g/dL (32.0-36.0); Mean Corpuscular Volume 89.5 fL (80.0-100.0); Monocytes # (auto) 0.6 10 ^3/uL (0-1.3); Monocytes % (auto) 5.2 % (0.0-12.0); Neutrophils # (auto) 9.4 10 ^3/uL (1.6-8.6); Neutrophils % (auto) 82.4 % (37.0-80.0); Red Blood Cells 3.19 10^6/uL (4.5-5.90); Red Cell Distribution Width 14.1 % (11.8-14.3); White Blood Cell 11.3 10^3/uL (4.4-10.8)
[2022-04-06] MEDS: MEROPENEM 1GM IVPB 100 ML IV SCH ×3 (06:00→22:00)
[2022-04-06] MEDS: METOCLOPRAMIDE HCL 5MG/ml INJ 2ml VIAL IV SCH ×3 (06:00→21:59)
[2022-04-06] MEDS: SUCRALFATE 1 GM/10 ML ORAL SUSP GT SCH ×4 (06:00→21:59)
[2022-04-06] MEDS: MIDAZOLAM DRIP 50 mg/50mL 50 ML IV SCH (06:45)
[2022-04-06] MEDS: POTASSIUM EFFERVESENT TAB 25 MEQ GT SCH ×2 (10:13→21:58)
[2022-04-06] MEDS: PANTOPRAZOLE 40 MG/10 ML VIAL INJ IV SCH ×2 (10:14→21:59)
[2022-04-06] MEDS: FLUCONAZOLE 200MG/100ML 100 ML IV SCH (10:14)
[2022-04-06] MEDS: FUROSEMIDE 40 MG/4 ML VIAL IV SCH ×2 (10:14→21:59)
[2022-04-06] MEDS: AMIODARONE HCL 200 MG TAB PO SCH ×2 (10:14→21:59)
[2022-04-06] MEDS: ASPirin 81 mg TAB PO SCH (10:14)
[2022-04-06] MEDS: CLOPIDOGREL BISULFATE 75 MG TAB PO SCH (10:14)
[2022-04-06] MEDS: SODIUM CHLOR 0.9% PF (SALINE LOCK) 10ML VIAL/SYR IV SCH ×2 (10:15→22:01)
[2022-04-06] MEDS: fentaNYL Drip 2500mCg/250mlNS 250 ML IV SCH (13:40)
[2022-04-06] MEDS: ATORVASTATIN 20 MG TAB PO SCH (21:58)
[2022-04-06] MEDS: SENNA 8.6 MG TAB PO SCH (21:58)
[2022-04-07] VITALS (105 sets, daily range): BP systolic 103–160; BP diastolic 27–69
[2022-04-07] MEDS: ENOXAPARIN SOD 80 MG/0.8ML SYRINGE SC SCH ×2 (01:37→14:33)
[2022-04-07] MEDS: IPRATROPIUM BROM 0.5 MG/2.5ML INH SOL NEB SCH ×6 (02:42→22:26)
[2022-04-07] MEDS: ALBUTEROL SULF 2.5 MG/0.5ML(0.5%) NEB SOLN NEB SCH ×6 (02:42→22:26)
[2022-04-07] MEDS: fentaNYL Drip 2500mCg/250mlNS 250 ML IV SCH (05:17)
[2022-04-07] MEDS: PROPOFOL 100 ML IV SCH (05:18)
[2022-04-07] MEDS: FREE WATER GT SCH ×3 (05:55→11:40)
[2022-04-07] MEDS: MEROPENEM 1GM IVPB 100 ML IV SCH ×3 (05:55→21:58)
[2022-04-07] MEDS: METOCLOPRAMIDE HCL 5MG/ml INJ 2ml VIAL IV SCH ×3 (05:55→21:56)
[2022-04-07] MEDS: SUCRALFATE 1 GM/10 ML ORAL SUSP GT SCH ×4 (06:19→21:56)
[2022-04-07] MEDS: MIDAZOLAM DRIP 50 mg/50mL 50 ML IV SCH (06:45)
[2022-04-07 08:16] LABS: Basophils # (auto) 0.1 10 ^3/uL (0-0.2); Basophils % (auto) 0.5 % (0.0-2.0); Eosinophils # (auto) 0.1 10 ^3/uL (0-0.8); Eosinophils % (auto) 0.7 % (0.0-7.0); Hematocrit 26.5 % (41.0-53.0); Lymphocytes # (auto) 1.1 10 ^3/uL (0.4-5.4); Mean Corpuscular Hemoglobin 30.7 pg (28.0-32.0); Mean Corpuscular Hgb Conc. 34.2 g/dL (32.0-36.0); Mean Corpuscular Volume 89.8 fL (80.0-100.0); Monocytes % (auto) 8.2 % (0.0-12.0); Neutrophils # (auto) 9.6 10 ^3/uL (1.6-8.6); Neutrophils % (auto) 81.6 % (37.0-80.0); Red Blood Cells 2.95 10^6/uL (4.5-5.90); White Blood Cell 11.8 10^3/uL (4.4-10.8)
[2022-04-07 08:37] LABS: Albumin 1.4 g/dL (3.4-5.0); Calcium 8.4 mg/dL (8.5-10.1); Potassium 4.7 mmol/L (3.5-5.1)
[2022-04-07 08:41] LABS: Bilirubin, Total 0.5 mg/dL (0.2-1.0)
[2022-04-07] MEDS: ASPirin 81 mg TAB PO SCH (09:43)
[2022-04-07] MEDS: FUROSEMIDE 40 MG/4 ML VIAL IV SCH ×2 (09:53→21:57)
[2022-04-07] MEDS: PANTOPRAZOLE 40 MG/10 ML VIAL INJ IV SCH ×2 (09:53→21:56)
[2022-04-07] MEDS: POTASSIUM EFFERVESENT TAB 25 MEQ GT SCH ×2 (09:53→21:57)
[2022-04-07] MEDS: FLUCONAZOLE 200MG/100ML 100 ML IV SCH (09:53)
[2022-04-07] MEDS: AMIODARONE HCL 200 MG TAB PO SCH ×2 (09:53→21:56)
[2022-04-07] MEDS: SODIUM CHLOR 0.9% PF (SALINE LOCK) 10ML VIAL/SYR IV SCH ×2 (09:54→21:56)
[2022-04-07] MEDS: CLOPIDOGREL BISULFATE 75 MG TAB PO SCH (09:54)
[2022-04-07] MEDS: ALBUMIN 25% 50 ML IV SCH ×2 (16:35→23:35)
[2022-04-07] MEDS: ATORVASTATIN 20 MG TAB PO SCH (21:56)
[2022-04-07] MEDS: SENNA 8.6 MG TAB PO SCH (21:58)
[2022-04-08] VITALS (106 sets, daily range): BP systolic 92–148; BP diastolic 20–49
[2022-04-08] MEDS: ENOXAPARIN SOD 80 MG/0.8ML SYRINGE SC SCH ×2 (02:03→14:00)
[2022-04-08] MEDS: IPRATROPIUM BROM 0.5 MG/2.5ML INH SOL NEB SCH ×6 (02:47→22:32)
[2022-04-08] MEDS: ALBUTEROL SULF 2.5 MG/0.5ML(0.5%) NEB SOLN NEB SCH ×6 (02:47→22:32)
[2022-04-08] MEDS: PROPOFOL 100 ML IV SCH ×2 (03:34→22:18)
[2022-04-08] MEDS: NOREPINEPHRINE 8 MG/250ML KIT 250 ML IV SCH (04:00)
[2022-04-08] MEDS: ALBUMIN 25% 50 ML IV SCH (04:56)
[2022-04-08] MEDS: METOCLOPRAMIDE HCL 5MG/ml INJ 2ml VIAL IV SCH ×3 (05:48→22:16)
[2022-04-08] MEDS: SUCRALFATE 1 GM/10 ML ORAL SUSP GT SCH ×4 (05:48→22:17)
[2022-04-08] MEDS: MEROPENEM 1GM IVPB 100 ML IV SCH ×3 (05:48→22:21)
[2022-04-08 06:32] LABS: Basophils # (auto) 0 10 ^3/uL (0-0.2); Eosinophils # (auto) 0.1 10 ^3/uL (0-0.8); Hemoglobin 8.4 g/dL (13.5-17.5); Lymphocytes # (auto) 1.1 10 ^3/uL (0.4-5.4); Neutrophils # (auto) 11.4 10 ^3/uL (1.6-8.6)
[2022-04-08 06:33] LABS: Basophils % (auto) 0.3 % (0.0-2.0); Eosinophils % (auto) 0.4 % (0.0-7.0); Hematocrit 25.2 % (41.0-53.0); Mean Corpuscular Hgb Conc. 33.4 g/dL (32.0-36.0); Monocytes # (auto) 1.5 10 ^3/uL (0-1.3); Monocytes % (auto) 10.4 % (0.0-12.0); Neutrophils % (auto) 80.9 % (37.0-80.0); Nucleated Red Blood Cells % 0.2 %; Red Cell Distribution Width 14.3 % (11.8-14.3); White Blood Cell 14.1 10^3/uL (4.4-10.8)
[2022-04-08 06:36] LABS: Calcium 8.8 mg/dL (8.5-10.1); Potassium 4.2 mmol/L (3.5-5.1)
[2022-04-08] MEDS: MIDAZOLAM DRIP 50 mg/50mL 50 ML IV SCH (06:45)
[2022-04-08] MEDS: FLUCONAZOLE 200MG/100ML 100 ML IV SCH (10:27)
[2022-04-08] MEDS: PANTOPRAZOLE 40 MG/10 ML VIAL INJ IV SCH ×2 (10:27→22:16)
[2022-04-08] MEDS: FUROSEMIDE 40 MG/4 ML VIAL IV SCH (10:28)
[2022-04-08] MEDS: CLOPIDOGREL BISULFATE 75 MG TAB PO SCH (10:29)
[2022-04-08] MEDS: ASPirin 81 mg TAB PO SCH (10:29)
[2022-04-08] MEDS: AMIODARONE HCL 200 MG TAB PO SCH ×2 (10:29→22:00)
[2022-04-08] MEDS: SODIUM CHLOR 0.9% PF (SALINE LOCK) 10ML VIAL/SYR IV SCH ×2 (10:29→22:21)
[2022-04-08] MEDS: POTASSIUM EFFERVESENT TAB 25 MEQ GT SCH ×2 (10:29→22:17)
[2022-04-08] MEDS: fentaNYL Drip 2500mCg/250mlNS 250 ML IV SCH ×2 (10:45→22:20)
[2022-04-08] MEDS: BUMETANIDE INJECTION 12.5 MG in GIVE UN-DILUTED 0 ML IV SCH (17:08)
[2022-04-08] MEDS: SENNA 8.6 MG TAB PO SCH (22:00)
[2022-04-08] MEDS: ATORVASTATIN 20 MG TAB PO SCH (22:17)
[2022-04-09] VITALS (96 sets, daily range): BP systolic 92–145; BP diastolic 18–54
[2022-04-09] MEDS: IPRATROPIUM BROM 0.5 MG/2.5ML INH SOL NEB SCH ×6 (02:10→22:22)
[2022-04-09] MEDS: ALBUTEROL SULF 2.5 MG/0.5ML(0.5%) NEB SOLN NEB SCH ×6 (02:11→22:22)
[2022-04-09 04:12] LABS: Basophils # (auto) 0.1 10 ^3/uL (0-0.2); Basophils % (auto) 0.8 % (0.0-2.0); Hemoglobin 7.8 g/dL (13.5-17.5); Nucleated Red Blood Cells % 0.3 %
[2022-04-09 04:15] LABS: Eosinophils # (auto) 0.3 10 ^3/uL (0-0.8); Eosinophils % (auto) 2.1 % (0.0-7.0); Hematocrit 23.1 % (41.0-53.0); Lymphocytes # (auto) 2.2 10 ^3/uL (0.4-5.4); Lymphocytes % (auto) 14.2 % (10.0-50.0); Mean Corpuscular Hemoglobin 30.6 pg (28.0-32.0); Mean Corpuscular Hgb Conc. 33.8 g/dL (32.0-36.0); Mean Corpuscular Volume 90.5 fL (80.0-100.0); Neutrophils # (auto) 10.8 10 ^3/uL (1.6-8.6); Neutrophils % (auto) 69.9 % (37.0-80.0); Red Blood Cells 2.55 10^6/uL (4.5-5.90); Red Cell Distribution Width 14.1 % (11.8-14.3); White Blood Cell 15.4 10^3/uL (4.4-10.8)
[2022-04-09 04:35] LABS: Potassium 4.4 mmol/L (3.5-5.1)
[2022-04-09 04:38] LABS: BUN/Creatinine Ratio 54.1
[2022-04-09] MEDS: METOCLOPRAMIDE HCL 5MG/ml INJ 2ml VIAL IV SCH ×3 (04:53→21:31)
[2022-04-09] MEDS: MEROPENEM 1GM IVPB 100 ML IV SCH ×3 (04:53→21:36)
[2022-04-09] MEDS: SUCRALFATE 1 GM/10 ML ORAL SUSP GT SCH ×4 (04:53→22:00)
[2022-04-09] MEDS: NOREPINEPHRINE 8 MG/250ML KIT 250 ML IV SCH (06:45)
[2022-04-09] MEDS: MIDAZOLAM DRIP 50 mg/50mL 50 ML IV SCH (07:00)
[2022-04-09] MEDS: PANTOPRAZOLE 40 MG/10 ML VIAL INJ IV SCH ×2 (09:44→21:32)
[2022-04-09] MEDS: CLOPIDOGREL BISULFATE 75 MG TAB PO SCH ×2 (09:45→15:20)
[2022-04-09] MEDS: AMIODARONE HCL 200 MG TAB PO SCH ×2 (09:45→21:31)
[2022-04-09] MEDS: ASPirin 81 mg TAB PO SCH (09:45)
[2022-04-09] MEDS: ENOXAPARIN SOD 40 MG/0.4 ML SYRINGE SC SCH ×2 (09:46→15:26)
[2022-04-09] MEDS: FLUCONAZOLE 200MG/100ML 100 ML IV SCH (09:47)
[2022-04-09] MEDS: POTASSIUM EFFERVESENT TAB 25 MEQ GT SCH ×2 (10:00→21:32)
[2022-04-09] MEDS: SODIUM CHLOR 0.9% PF (SALINE LOCK) 10ML VIAL/SYR IV SCH ×2 (10:30→21:36)
[2022-04-09] MEDS: PROPOFOL 100 ML IV SCH ×3 (10:50→21:37)
[2022-04-09] MEDS: BUMETANIDE INJECTION 12.5 MG in GIVE UN-DILUTED 0 ML IV SCH (17:54)
[2022-04-09] MEDS: fentaNYL Drip 2500mCg/250mlNS 250 ML IV SCH (17:57)
[2022-04-09] MEDS: SENNA 8.6 MG TAB PO SCH (21:31)
[2022-04-09] MEDS: ATORVASTATIN 20 MG TAB PO SCH (21:31)
[2022-04-10] VITALS (96 sets, daily range): BP systolic 95–140; BP diastolic 13–86
[2022-04-10] MEDS: PROPOFOL 100 ML IV SCH (01:30)
[2022-04-10] MEDS: IPRATROPIUM BROM 0.5 MG/2.5ML INH SOL NEB SCH ×6 (02:30→22:08)
[2022-04-10] MEDS: ALBUTEROL SULF 2.5 MG/0.5ML(0.5%) NEB SOLN NEB SCH ×6 (02:30→22:08)
[2022-04-10 04:14] LABS: Hematocrit 22.9 % (41.0-53.0); Hemoglobin 7.8 g/dL (13.5-17.5)
[2022-04-10 04:16] LABS: Mean Corpuscular Hemoglobin 30.4 pg (28.0-32.0); Mean Corpuscular Hgb Conc. 33.9 g/dL (32.0-36.0); Mean Corpuscular Volume 89.5 fL (80.0-100.0); Red Blood Cells 2.55 10^6/uL (4.5-5.90); Red Cell Distribution Width 14.2 % (11.8-14.3); White Blood Cell 11.8 10^3/uL (4.4-10.8)
[2022-04-10 04:18] LABS: Band Neutrophils % (manual) 0; Blast Cells 0; Promyelocytes % 0; Reactive Lymphocytes 0
[2022-04-10 04:24] LABS: BUN/Creatinine Ratio 57.4; Calcium 8.8 mg/dL (8.5-10.1); Potassium 3.5 mmol/L (3.5-5.1)
[2022-04-10] MEDS: MEROPENEM 1GM IVPB 100 ML IV SCH ×3 (05:22→22:19)
[2022-04-10] MEDS: METOCLOPRAMIDE HCL 5MG/ml INJ 2ml VIAL IV SCH ×3 (05:24→22:18)
[2022-04-10] MEDS: NOREPINEPHRINE 8 MG/250ML KIT 250 ML IV SCH (06:45)
[2022-04-10] MEDS: MIDAZOLAM DRIP 50 mg/50mL 50 ML IV SCH (06:45)
[2022-04-10] MEDS: SUCRALFATE 1 GM/10 ML ORAL SUSP GT SCH ×4 (06:54→22:18)
[2022-04-10 08:20] LABS: Basophils % (manual) 1 (0.0-2.0); Eosinophils % (manual) 1 (0-7); Lymphocytes % (manual) 14 (10.0-50.0); Metamyelocytes % 2; Monocytes % (manual) 8 (0-12); Myelocytes % 2
[2022-04-10] MEDS: SODIUM CHLOR 0.9% PF (SALINE LOCK) 10ML VIAL/SYR IV SCH ×2 (10:00→22:19)
[2022-04-10] MEDS: PANTOPRAZOLE 40 MG/10 ML VIAL INJ IV SCH ×2 (10:04→22:18)
[2022-04-10] MEDS: ENOXAPARIN SOD 40 MG/0.4 ML SYRINGE SC SCH (10:05)
[2022-04-10] MEDS: CLOPIDOGREL BISULFATE 75 MG TAB PO SCH (10:05)
[2022-04-10] MEDS: ASPirin 81 mg TAB PO SCH (10:05)
[2022-04-10] MEDS: AMIODARONE HCL 200 MG TAB PO SCH ×2 (10:05→22:18)
[2022-04-10] MEDS: FLUCONAZOLE 200MG/100ML 100 ML IV SCH (10:06)
[2022-04-10] MEDS: POTASSIUM EFFERVESENT TAB 25 MEQ GT SCH ×2 (10:06→22:18)
[2022-04-10] MEDS: FREE WATER GT SCH (18:00)
[2022-04-10] MEDS: BUMETANIDE INJECTION 12.5 MG in GIVE UN-DILUTED 0 ML IV SCH (18:38)
[2022-04-10] MEDS: ATORVASTATIN 20 MG TAB PO SCH (22:18)
[2022-04-10] MEDS: SENNA 8.6 MG TAB PO SCH (22:18)
[2022-04-11] VITALS (84 sets, daily range): BP systolic 97–148; BP diastolic 29–59
[2022-04-11] MEDS: IPRATROPIUM BROM 0.5 MG/2.5ML INH SOL NEB SCH ×6 (02:16→22:08)
[2022-04-11] MEDS: ALBUTEROL SULF 2.5 MG/0.5ML(0.5%) NEB SOLN NEB SCH ×6 (02:16→22:08)
[2022-04-11 04:06] LABS: Hematocrit 23.4 % (41.0-53.0); Hemoglobin 7.6 g/dL (13.5-17.5); Mean Corpuscular Hemoglobin 29.6 pg (28.0-32.0); Mean Corpuscular Hgb Conc. 32.6 g/dL (32.0-36.0); Mean Corpuscular Volume 90.8 fL (80.0-100.0); Red Blood Cells 2.58 10^6/uL (4.5-5.90); Red Cell Distribution Width 14.3 % (11.8-14.3); White Blood Cell 12.3 10^3/uL (4.4-10.8)
[2022-04-11 04:21] LABS: BUN/Creatinine Ratio 48.7; Calcium 8.9 mg/dL (8.5-10.1); Potassium 4.6 mmol/L (3.5-5.1)
[2022-04-11 04:23] LABS: Basophils % (manual) 0 (0.0-2.0); Blast Cells 0; Promyelocytes % 0; Reactive Lymphocytes 0
[2022-04-11 04:29] LABS: Partial Thromboplastin Time 37.6 sec (24.6-33.4)
[2022-04-11 04:31] LABS: INR 1.07 (0.9-1.15)
[2022-04-11 05:21] LABS: Band Neutrophils % (manual) 5; Eosinophils % (manual) 5 (0-7); Lymphocytes % (manual) 10 (10.0-50.0); Metamyelocytes % 1; Monocytes % (manual) 8 (0-12); Myelocytes % 3
[2022-04-11] MEDS: METOCLOPRAMIDE HCL 5MG/ml INJ 2ml VIAL IV SCH ×3 (05:57→21:30)
[2022-04-11] MEDS: MEROPENEM 1GM IVPB 100 ML IV SCH ×3 (05:57→21:32)
[2022-04-11] MEDS: FREE WATER GT SCH ×4 (05:57→18:34)
[2022-04-11] MEDS: SUCRALFATE 1 GM/10 ML ORAL SUSP GT SCH ×4 (05:58→21:31)
[2022-04-11] MEDS: MIDAZOLAM DRIP 50 mg/50mL 50 ML IV SCH (06:45)
[2022-04-11] MEDS: NOREPINEPHRINE 8 MG/250ML KIT 250 ML IV SCH (06:45)
[2022-04-11] MEDS: POTASSIUM EFFERVESENT TAB 25 MEQ GT SCH ×2 (10:00→21:32)
[2022-04-11] MEDS: PROPOFOL 100 ML IV SCH ×2 (10:12→20:09)
[2022-04-11] MEDS: fentaNYL Drip 2500mCg/250mlNS 250 ML IV SCH ×2 (10:13→22:13)
[2022-04-11] MEDS: CLOPIDOGREL BISULFATE 75 MG TAB PO SCH (11:34)
[2022-04-11] MEDS: PANTOPRAZOLE 40 MG/10 ML VIAL INJ IV SCH ×2 (11:34→21:30)
[2022-04-11] MEDS: ENOXAPARIN SOD 40 MG/0.4 ML SYRINGE SC SCH (11:34)
[2022-04-11] MEDS: AMIODARONE HCL 200 MG TAB PO SCH ×2 (11:35→21:33)
[2022-04-11] MEDS: ASPirin 81 mg TAB PO SCH (11:35)
[2022-04-11] MEDS: FLUCONAZOLE 200MG/100ML 100 ML IV SCH (11:36)
[2022-04-11] MEDS: SODIUM CHLOR 0.9% PF (SALINE LOCK) 10ML VIAL/SYR IV SCH ×3 (15:03→21:33)
[2022-04-11] MEDS ORDERED: LIDOCAINE 1% (LOCAL ANESTH.) PF 5ml SDV ID ONE (18:15)
[2022-04-11] MEDS: BUMETANIDE 2.5mg/10ml (0.25 mg/ml) INJ IV SCH (18:36)
[2022-04-11] MEDS: SENNA 8.6 MG TAB PO SCH (21:33)
[2022-04-11] MEDS: ATORVASTATIN 20 MG TAB PO SCH (21:33)
[2022-04-12] VITALS (66 sets, daily range): BP systolic 77–134; BP diastolic 16–51
[2022-04-12] MEDS: FREE WATER GT SCH ×4 (00:03→18:02)
[2022-04-12] MEDS: PROPOFOL 100 ML IV SCH ×5 (00:24→20:43)
[2022-04-12] MEDS: ALBUTEROL SULF 2.5 MG/0.5ML(0.5%) NEB SOLN NEB SCH ×6 (02:15→22:09)
[2022-04-12] MEDS: IPRATROPIUM BROM 0.5 MG/2.5ML INH SOL NEB SCH ×6 (02:15→22:09)
[2022-04-12 03:43] LABS: Hematocrit 23.2 % (41.0-53.0); Hemoglobin 7.7 g/dL (13.5-17.5); Mean Corpuscular Hemoglobin 29.9 pg (28.0-32.0); Mean Corpuscular Hgb Conc. 33.1 g/dL (32.0-36.0); Mean Corpuscular Volume 90.3 fL (80.0-100.0); Red Blood Cells 2.57 10^6/uL (4.5-5.90); Red Cell Distribution Width 14.5 % (11.8-14.3); White Blood Cell 13.2 10^3/uL (4.4-10.8)
[2022-04-12 03:46] LABS: Basophils % (manual) 0 (0.0-2.0); Blast Cells 0; Metamyelocytes % 0; Promyelocytes % 0; Reactive Lymphocytes 0
[2022-04-12 05:14] LABS: Band Neutrophils % (manual) 2; Eosinophils % (manual) 2 (0-7); Lymphocytes % (manual) 7 (10.0-50.0); Monocytes % (manual) 9 (0-12); Myelocytes % 2
[2022-04-12] MEDS: MEROPENEM 1GM IVPB 100 ML IV SCH ×2 (05:33→21:27)
[2022-04-12] MEDS: BUMETANIDE 2.5mg/10ml (0.25 mg/ml) INJ IV SCH (05:33)
[2022-04-12] MEDS: METOCLOPRAMIDE HCL 5MG/ml INJ 2ml VIAL IV SCH ×3 (05:34→21:27)
[2022-04-12] MEDS: MIDAZOLAM DRIP 50 mg/50mL 50 ML IV SCH (05:34)
[2022-04-12] MEDS: NOREPINEPHRINE 8 MG/250ML KIT 250 ML IV SCH ×2 (05:34→18:04)
[2022-04-12] MEDS: SUCRALFATE 1 GM/10 ML ORAL SUSP GT SCH ×4 (06:43→21:27)
[2022-04-12 06:55] LABS: BUN/Creatinine Ratio 46.9; Calcium 8.9 mg/dL (8.5-10.1)
[2022-04-12] MEDS: POTASSIUM EFFERVESENT TAB 25 MEQ GT SCH (10:00)
[2022-04-12] MEDS: PANTOPRAZOLE 40 MG/10 ML VIAL INJ IV SCH ×2 (10:14→21:26)
[2022-04-12] MEDS: FLUCONAZOLE 200MG/100ML 100 ML IV SCH (10:14)
[2022-04-12] MEDS: SODIUM CHLOR 0.9% PF (SALINE LOCK) 10ML VIAL/SYR IV SCH ×4 (10:14→22:00)
[2022-04-12] MEDS: CLOPIDOGREL BISULFATE 75 MG TAB PO SCH (10:15)
[2022-04-12] MEDS: ASPirin 81 mg TAB PO SCH (10:15)
[2022-04-12] MEDS: AMIODARONE HCL 200 MG TAB PO SCH ×2 (10:15→21:27)
[2022-04-12] MEDS: ENOXAPARIN SOD 40 MG/0.4 ML SYRINGE SC SCH (10:16)
[2022-04-12] MEDS: fentaNYL Drip 2500mCg/250mlNS 250 ML IV SCH (11:02)
[2022-04-12] MEDS: SENNA 8.6 MG TAB PO SCH (21:27)
[2022-04-12] MEDS: ATORVASTATIN 20 MG TAB PO SCH (21:27)
[2022-04-13] VITALS (96 sets, daily range): BP systolic 93–155; BP diastolic 14–46
[2022-04-13] MEDS: FREE WATER GT SCH ×5 (00:21→23:23)
[2022-04-13] MEDS: fentaNYL Drip 2500mCg/250mlNS 250 ML IV SCH ×2 (00:22→10:15)
[2022-04-13] MEDS: PROPOFOL 100 ML IV SCH ×5 (00:22→18:12)
[2022-04-13] MEDS: IPRATROPIUM BROM 0.5 MG/2.5ML INH SOL NEB SCH ×6 (02:15→21:36)
[2022-04-13] MEDS: ALBUTEROL SULF 2.5 MG/0.5ML(0.5%) NEB SOLN NEB SCH ×6 (02:15→21:36)
[2022-04-13 04:16] LABS: Basophils # (auto) 0.1 10 ^3/uL (0-0.2); Hemoglobin 8.1 g/dL (13.5-17.5); Neutrophils # (auto) 12.2 10 ^3/uL (1.6-8.6)
[2022-04-13 04:18] LABS: Eosinophils % (auto) 6.3 % (0.0-7.0); Lymphocytes % (auto) 6.3 % (10.0-50.0); Mean Corpuscular Hemoglobin 31.4 pg (28.0-32.0); Mean Corpuscular Volume 89.7 fL (80.0-100.0); Monocytes # (auto) 1.1 10 ^3/uL (0-1.3); Monocytes % (auto) 7.4 % (0.0-12.0); Red Blood Cells 2.56 10^6/uL (4.5-5.90); Red Cell Distribution Width 14.8 % (11.8-14.3); White Blood Cell 15.4 10^3/uL (4.4-10.8)
[2022-04-13 04:19] LABS: Nucleated Red Blood Cells % 3.5 %
[2022-04-13 04:33] LABS: Potassium 5.2 mmol/L (3.5-5.1)
[2022-04-13 04:39] LABS: Albumin 1.5 g/dL (3.4-5.0); Calcium 7.7 mg/dL (8.5-10.1)
[2022-04-13 04:44] LABS: BUN/Creatinine Ratio 41.8
[2022-04-13 04:47] LABS: Bilirubin, Total 1.4 mg/dL (0.2-1.0)
[2022-04-13 05:02] LABS: Total Protein 4.7 g/dL (6.4-8.2)
[2022-04-13] MEDS: METOCLOPRAMIDE HCL 5MG/ml INJ 2ml VIAL IV SCH ×3 (06:09→21:13)
[2022-04-13] MEDS: MIDAZOLAM DRIP 50 mg/50mL 50 ML IV SCH (06:45)
[2022-04-13] MEDS: SUCRALFATE 1 GM/10 ML ORAL SUSP GT SCH ×4 (07:00→21:13)
[2022-04-13] MEDS: NOREPINEPHRINE 8 MG/250ML KIT 250 ML IV SCH ×2 (08:17→18:13)
[2022-04-13] MEDS: FLUCONAZOLE 200MG/100ML 100 ML IV SCH (09:04)
[2022-04-13] MEDS: ENOXAPARIN SOD 40 MG/0.4 ML SYRINGE SC SCH (10:50)
[2022-04-13] MEDS: PANTOPRAZOLE 40 MG/10 ML VIAL INJ IV SCH ×2 (10:50→21:13)
[2022-04-13] MEDS: MEROPENEM 1GM IVPB 100 ML IV SCH ×2 (10:50→22:00)
[2022-04-13] MEDS: SODIUM CHLOR 0.9% PF (SALINE LOCK) 10ML VIAL/SYR IV SCH ×4 (10:51→22:00)
[2022-04-13] MEDS: CLOPIDOGREL BISULFATE 75 MG TAB PO SCH ×2 (10:51→11:17)
[2022-04-13] MEDS: ASPirin 81 mg TAB PO SCH ×2 (10:51→11:17)
[2022-04-13] MEDS: AMIODARONE HCL 200 MG TAB PO SCH ×2 (10:51→21:14)
[2022-04-13] MEDS: BUMETANIDE 2.5mg/10ml (0.25 mg/ml) INJ IV SCH ×2 (12:30→21:15)
[2022-04-13] MEDS: ALBUMIN 25% 100 ML IV SCH ×2 (13:39→18:10)
[2022-04-13] MEDS: ATORVASTATIN 20 MG TAB PO SCH (21:14)
[2022-04-13] MEDS: SENNA 8.6 MG TAB PO SCH (21:14)
[2022-04-14] VITALS (96 sets, daily range): BP systolic 46–147; BP diastolic 15–53
[2022-04-14] MEDS: BUMETANIDE 2.5mg/10ml (0.25 mg/ml) INJ IV SCH ×2 (00:36→05:41)
[2022-04-14] MEDS: ALBUMIN 25% 100 ML IV SCH ×4 (00:39→18:25)
[2022-04-14] MEDS: fentaNYL Drip 2500mCg/250mlNS 250 ML IV SCH (00:39)
[2022-04-14] MEDS: ALBUTEROL SULF 2.5 MG/0.5ML(0.5%) NEB SOLN NEB SCH ×6 (02:05→22:04)
[2022-04-14] MEDS: IPRATROPIUM BROM 0.5 MG/2.5ML INH SOL NEB SCH ×6 (02:05→22:04)
[2022-04-14 03:57] LABS: Hemoglobin 7.3 g/dL (13.5-17.5)
[2022-04-14 03:59] LABS: Hematocrit 20.6 % (41.0-53.0); Mean Corpuscular Hemoglobin 31.8 pg (28.0-32.0); Mean Corpuscular Hgb Conc. 35.3 g/dL (32.0-36.0); Mean Corpuscular Volume 90.1 fL (80.0-100.0); Red Blood Cells 2.28 10^6/uL (4.5-5.90); White Blood Cell 13.7 10^3/uL (4.4-10.8)
[2022-04-14 04:16] LABS: Basophils % (manual) 0 (0.0-2.0); Blast Cells 0; Metamyelocytes % 0; Promyelocytes % 0; Reactive Lymphocytes 0
[2022-04-14 04:59] LABS: Albumin 2.6 g/dL (3.4-5.0); BUN/Creatinine Ratio 35.4; Bilirubin, Total 2.4 mg/dL (0.2-1.0); Calcium 8.7 mg/dL (8.5-10.1); Total Protein 5.6 g/dL (6.4-8.2)
[2022-04-14 05:10] LABS: Potassium 6.2 mmol/L (3.5-5.1)
[2022-04-14] MEDS: FREE WATER GT SCH ×2 (05:36→12:00)
[2022-04-14] MEDS: METOCLOPRAMIDE HCL 5MG/ml INJ 2ml VIAL IV SCH ×3 (05:41→21:49)
[2022-04-14] MEDS: SUCRALFATE 1 GM/10 ML ORAL SUSP GT SCH ×4 (05:43→21:28)
[2022-04-14] MEDS: MIDAZOLAM DRIP 50 mg/50mL 50 ML IV SCH (06:45)
[2022-04-14 07:00] LABS: Band Neutrophils % (manual) 11; Eosinophils % (manual) 2 (0-7); Lymphocytes % (manual) 8 (10.0-50.0); Monocytes % (manual) 5 (0-12); Myelocytes % 1
[2022-04-14] MEDS ORDERED: SODIUM BICARBONATE 8.4% INJ 50ML SYRINGE IV ONE (07:30)
[2022-04-14] MEDS ORDERED: SODIUM ZIRCONIUM CYCL 10 GM PAK PO ONE (07:30)
[2022-04-14] MEDS ORDERED: InsuLIN REG 1unit/0.01ml Soln (100units/ml) IV ONE (07:30)
[2022-04-14] MEDS ORDERED: DEXTROSE (50%) 50ML SYRG IV ONE (07:30)
[2022-04-14] MEDS ORDERED: CALCIUM GLUC 1,000mg/50ml-NS 50 ML IV ONE (07:30)
[2022-04-14] MEDS ORDERED: BUMETANIDE INJECTION 25 MG in GIVE UN-DILUTED 0 ML IV SCH (08:00)
[2022-04-14] MEDS: AMIODARONE HCL 200 MG TAB PO SCH ×3 (10:00→21:29)
[2022-04-14] MEDS: FLUCONAZOLE 200MG/100ML 100 ML IV SCH (10:42)
[2022-04-14] MEDS: PANTOPRAZOLE 40 MG/10 ML VIAL INJ IV SCH ×2 (10:44→21:49)
[2022-04-14] MEDS: MEROPENEM 1GM IVPB 100 ML IV SCH ×2 (10:44→21:50)
[2022-04-14] MEDS: SODIUM CHLOR 0.9% PF (SALINE LOCK) 10ML VIAL/SYR IV SCH ×4 (10:44→21:50)
[2022-04-14] MEDS: ENOXAPARIN SOD 40 MG/0.4 ML SYRINGE SC SCH (10:47)
[2022-04-14 12:48] LABS: Albumin 2.5 g/dL (3.4-5.0); Calcium 8.3 mg/dL (8.5-10.1); Potassium 5.2 mmol/L (3.5-5.1)
[2022-04-14 13:05] LABS: BUN/Creatinine Ratio 33.2
[2022-04-14] MEDS: ATORVASTATIN 20 MG TAB PO SCH (21:29)
[2022-04-14] MEDS ORDERED: PHENYLEPHRINE IV 250 ML IV SCH (23:15)
[2022-04-14] MEDS ORDERED: PHENYLEPHRINE IV 250 ML IV ONE (23:30)
[2022-04-15] VITALS (7 sets, daily range): BP systolic 37–113; BP diastolic 13–46
[2022-04-15] MEDS: ALBUMIN 25% 100 ML IV SCH (00:32)
[2022-04-15] MEDS ORDERED: VASOPRESSIN 20 UNIT/ML ONE (00:53)
[2022-04-15] MEDS ORDERED: ALBUMIN 5% 250 ML IV ONE ×2 (00:59→01:00)
[2022-04-15] MEDS ORDERED: VASOPRESSIN 50 UNITS in D5W 5% 247.5 ML IV SCH (01:00)
[2022-04-15] MEDS ORDERED: EPINEPHrine HCL 250 ML IV ONE (01:25)
[2022-04-15] MEDS: IPRATROPIUM BROM 0.5 MG/2.5ML INH SOL NEB SCH (02:30)
[2022-04-15] MEDS: ALBUTEROL SULF 2.5 MG/0.5ML(0.5%) NEB SOLN NEB SCH (02:30)
[2022-04-15] MEDS ORDERED: EPINEPHrine HCL 1 MG/10 ML SYRG IV ONE (07:37)
[2022-04-15] MEDS ORDERED: SODIUM BICARBONATE 8.4 % INJ 50ML VIAL IV ONE (07:37)
[2022-04-15] MEDS ORDERED: ATROPINE SULF 1 MG/10ml SYR IM ONE (07:37)
[2022-04-15] MEDS ORDERED: ENOXAPARIN SOD 30 MG/0.3 ML SYRINGE SC SCH (10:00)
== END 2022-04-15 07:38 | DRG 853 ==
LOC: ER 03:57 → EDBD 03:57 → TELE 05:06 → ICU WEST 05:34 → ICU CENTRL 06:15 → DOU IN ICU 07:43 → TELE-EAST 22:10 → TELE-WESTW 03-16 04:20 → ICU WEST 03-17 01:29 → DOU IN ICU 03-17 08:06 → ICU WEST 03-18 18:39
PROVIDERS: ADMIT Nurse Practitioner Family; ATTEND Internal Medicine
PROC: 027034Z Dilation of Coronary Artery, One Artery with Drug-eluting Intraluminal Device, Percutaneous Approach (ICD-10-PCS; principal; 2022-03-15)
PROC: 02C03ZZ Extirpation of Matter from Coronary Artery, One Artery, Percutaneous Approach (ICD-10-PCS; 2022-03-15)
PROC: 3E073PZ Introduction of Platelet Inhibitor into Coronary Artery, Percutaneous Approach (ICD-10-PCS; 2022-03-15)
PROC: B41F1ZZ Fluoroscopy of Right Lower Extremity Arteries using Low Osmolar Contrast (ICD-10-PCS; 2022-03-15)
PROC: B240ZZ3 Ultrasonography of Single Coronary Artery, Intravascular (ICD-10-PCS; 2022-03-15)
PROC: 02HV33Z Insertion of Infusion Device into Superior Vena Cava, Percutaneous Approach (ICD-10-PCS; 2022-03-15)
PROC: 4A023N7 Measurement of Cardiac Sampling and Pressure, Left Heart, Percutaneous Approach (ICD-10-PCS; 2022-03-15)
PROC: B211YZZ Fluoroscopy of Multiple Coronary Arteries using Other Contrast (ICD-10-PCS; 2022-03-15)
PROC: B215YZZ Fluoroscopy of Left Heart using Other Contrast (ICD-10-PCS; 2022-03-15)
PROC: 5A0935A Assistance with Respiratory Ventilation, Less than 24 Consecutive Hours, High Flow/Velocity Cannula (ICD-10-PCS; 2022-03-17)
PROC: 05H933Z Insertion of Infusion Device into Right Brachial Vein, Percutaneous Approach (ICD-10-PCS; 2022-03-17)
PROC: B54MZZA Ultrasonography of Right Upper Extremity Veins, Guidance (ICD-10-PCS; 2022-03-17)
PROC: 5A0935A Assistance with Respiratory Ventilation, Less than 24 Consecutive Hours, High Flow/Velocity Cannula (ICD-10-PCS; 2022-03-18)
PROC: 0BH17EZ Insertion of Endotracheal Airway into Trachea, Via Natural or Artificial Opening (ICD-10-PCS; 2022-03-18)
PROC: 5A1955Z Respiratory Ventilation, Greater than 96 Consecutive Hours (ICD-10-PCS; 2022-03-18)
PROC: 05H933Z Insertion of Infusion Device into Right Brachial Vein, Percutaneous Approach (ICD-10-PCS; 2022-03-19)
PROC: B54MZZA Ultrasonography of Right Upper Extremity Veins, Guidance (ICD-10-PCS; 2022-03-19)
PROC: 06HY33Z Insertion of Infusion Device into Lower Vein, Percutaneous Approach (ICD-10-PCS; 2022-03-31)
PROC: 0B9D8ZX Drainage of Right Middle Lung Lobe, Via Natural or Artificial Opening Endoscopic, Diagnostic (ICD-10-PCS; 2022-04-02)
PROC: 0W993ZZ Drainage of Right Pleural Cavity, Percutaneous Approach (ICD-10-PCS; 2022-04-02)
PROC: 4A023N7 Measurement of Cardiac Sampling and Pressure, Left Heart, Percutaneous Approach (ICD-10-PCS; 2022-04-02)
PROC: B211YZZ Fluoroscopy of Multiple Coronary Arteries using Other Contrast (ICD-10-PCS; 2022-04-02)
PROC: B215YZZ Fluoroscopy of Left Heart using Other Contrast (ICD-10-PCS; 2022-04-02)
PROC: 4A033BC Measurement of Arterial Pressure, Coronary, Percutaneous Approach (ICD-10-PCS; 2022-04-02)
PROC: 5A1D70Z Performance of Urinary Filtration, Intermittent, Less than 6 Hours Per Day (ICD-10-PCS; 2022-04-14)
PROC: 5A12012 Performance of Cardiac Output, Single, Manual (ICD-10-PCS; 2022-04-15)
DX: A41.89 Other specified sepsis (principal); I21.19 ST elevation (STEMI) myocardial infarction involving other coronary artery of inferior wall; U07.1 COVID-19; J69.0 Pneumonitis due to inhalation of food and vomit; N17.0 Acute kidney failure with tubular necrosis; K72.00 Acute and subacute hepatic failure without coma; I50.43 Acute on chronic combined systolic (congestive) and diastolic (congestive) heart failure; J96.21 Acute and chronic respiratory failure with hypoxia; R65.21 Severe sepsis with septic shock; I48.20 Chronic atrial fibrillation, unspecified; E44.0 Moderate protein-calorie malnutrition; E87.2 Acidosis; K92.2 Gastrointestinal hemorrhage, unspecified; I82.621 Acute embolism and thrombosis of deep veins of right upper extremity; J44.0 Chronic obstructive pulmonary disease with (acute) lower respiratory infection; I13.0 Hypertensive heart and chronic kidney disease with heart failure and stage 1 through stage 4 chronic kidney disease, or unspecified chronic kidney disease; E87.6 Hypokalemia; L40.9 Psoriasis, unspecified; E11.22 Type 2 diabetes mellitus with diabetic chronic kidney disease; N18.9 Chronic kidney disease, unspecified; E11.65 Type 2 diabetes mellitus with hyperglycemia; H54.7 Unspecified visual loss; Z88.8 Allergy status to other drugs, medicaments and biological substances; Z68.23 Body mass index [BMI] 23.0-23.9, adult; Z72.0 Tobacco use; Z71.6 Tobacco abuse counseling; Z86.73 Personal history of transient ischemic attack (TIA), and cerebral infarction without residual deficits; Z79.4 Long term (current) use of insulin
CPT/HCPCS: 31624; 32555; 36415; 36569; 36600; 70450; 71045; 74018; 75710; 76604; 80048; 80053; 80061; 81001; 82533; 82805; 82962; 83036; 83605; 83735; 83880; 83986; 84100; 84132; 84484; 85007; 85025; 85027; 85379; 85610; 85730; 87040; 87070; 87077; 87081; 87086; 87205; 89051; 90935; 92928; 92950; 92973; 92978; 93005; 93306; 93458; 93571; 93970; 93971; 94002; 94003; 94640; 96361; 96374; 99152; 99153; 99291; A4565; C1874; C9113; G0378; J0153; J0171; J0330; J0696; J1450; J2001; J2185; J2250; J2543; J2704; J3480; J3490; J7060; P9047; Q9967